=== PATIENT | female | born 1955 | race Caucasian/White ===

== ENCOUNTER 2017-04-21 08:51 | Emergency (ER) | payer OTHER ==
[2017-04-21] MEDS ORDERED: KETOROLAC 60 MG/2 ML INJ. (09:40)
[2017-04-21] MEDS: KETOROLAC 60 MG/2 ML INJ. IM (09:45)
== END 2017-04-21 09:47 | disposition home or self-care (01) ==
LOC: ER 08:51
DX: M54.30 Sciatica, unspecified side (principal); I11.0 Hypertensive heart disease with heart failure; I50.9 Heart failure, unspecified; G89.29 Other chronic pain
CPT/HCPCS: 96372; 99283-25; J1885

== ENCOUNTER → 2017-12-25 | Outpatient (CLI) | payer OTHER ==
[2017-04-21 09:00] VITALS: BP 141/88
[~2017-12-25] MED LIST: BUPR75TA6 PO; CARV6.252 PO; CETI10TA16 PO; CYCL10TA2 PO; DIPH25CA58 PO; HYDR12.58 PO; LACT1CAP29 PO; LISI2.5T PO; MELO7.5T29 PO; METH10TA4 PO; METO10TA81 PO; METO2.5T PO; NAPR-683 PO; TRAM50TA PO
[2017-12-25 09:41] LABS: BASO % 0 % (0-3); EOS # 0.1 x10^3/uL (0.0-0.7); EOS % 3 % (0-3); HEMATOCRIT 35.8 % (36.0-47.0); HEMOGLOBIN 12.3 g/dL (12.0-15.5); LYMPH # 1.3 x10^3/uL (1.0-4.8); LYMPH % 31 % (24-48); MEAN CORPUSCULAR HEMOGLOBIN 31 pg (25-35); MEAN CORPUSCULAR HGB CONC 34 g/dL (31-37); MEAN CORPUSCULAR VOLUME 90 fL (79-100); MONO # 0.5 x10^3/uL (0.0-1.1); MONO % 13 % (0-9); NEUT # 2.3 x10^3uL (1.8-7.7); NEUT % 53 % (31-73); PLATELET COUNT 160 x10^3/uL (140-400); RED CELL DISTRIBUTION WIDTH 13.6 % (11.5-14.5); WHITE BLOOD COUNT 4.3 x10^3/uL (4.0-11.0)
[2017-12-25 09:54] LABS: ALBUMIN 3.7 g/dL (3.4-5.0); CALCIUM 9.9 mg/dL (8.5-10.1); CREATININE 0.9 mg/dL (0.6-1.0); POTASSIUM 4.1 mmol/L (3.5-5.1)
[2017-12-25 10:01] LABS: PROTHROMBIN TIME PATIENT 13.8 SEC (11.7-14.0)
--- NOTE | 2017-12-25 12:57 | EKG ---
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
--- NOTE | 2017-12-25 16:30 | RAD ---
Chest, 2 views, 12/25/2017: HISTORY: Preop evaluation for knee surgery The heart size and pulmonary vascularity are normal. There is calcific plaquing of the aorta. No pulmonary infiltrate is seen. There is no evidence of pleural fluid. IMPRESSION: No acute cardiopulmonary abnormality is detected. Electronically signed by: Rajesh Arriola MD (12/25/2017 4:27 PM) [facility]
== END | disposition home or self-care (01) ==
LOC: SURGPAT 13:27
PROVIDERS: ATTEND Orthopaedic Surgery
DX: Z01.818 Encounter for other preprocedural examination (principal); I11.0 Hypertensive heart disease with heart failure; I50.9 Heart failure, unspecified; Z90.710 Acquired absence of both cervix and uterus
CPT/HCPCS: 36415; 71046; 80048; 82040; 82306; 85025; 85610; 85730; 87641; 93005

== ENCOUNTER → 2018-01-03 | Outpatient (CLI) | payer OTHER ==
[2017-04-21 09:00] VITALS: BP 141/88
[2018-01-03 15:02] LABS: BILIRUBIN,URINE NEGATIVE (NEG); CLARITY,URINE CLEAR; COLOR,URINE YELLOW; NITRITE,URINE NEGATIVE (NEG); PH,URINE 5.5; PROTEIN,URINE NEGATIVE (NEG-TRACE)
[2018-01-03 15:19] LABS: BACTERIA,URINE MANY /HPF (0-FEW); RBC,URINE OCC /HPF (0-2); SQUAMOUS EPITHELIAL CELL,UR MOD /LPF; WBC,URINE 20-40 /HPF (0-4)
== END | disposition home or self-care (01) ==
LOC: LAB 14:32
PROVIDERS: ATTEND Orthopaedic Surgery
DX: Z01.818 Encounter for other preprocedural examination (principal); M17.11 Unilateral primary osteoarthritis, right knee; I11.0 Hypertensive heart disease with heart failure; I50.9 Heart failure, unspecified; Z90.710 Acquired absence of both cervix and uterus; Z88.0 Allergy status to penicillin
CPT/HCPCS: 36415; 81001; 85651

== ENCOUNTER 2018-01-16 06:31 | Inpatient (IN) | payer OTHER ==
--- NOTE | 2018-01-15 15:57 | PDOC1 ---
History and Physical Date of Admission Date of Admission DATE: 01/16/18 Identification/Chief Complaint Chief Complaint right knee osteoarthritis pain Source Source: Chart review History of Present Illness History of Present Illness Patient is a 62 year old female with bilateral knee pain. The right knee is significantly worse than the left knee. She states she has pain that radiates through the entire right lower extremity. She received cortisone injections at her last visit on 08.07.2017, which did not provide much symptomatic relief. She takes Meloxicam, which helped with the knee swelling. She states the knee pain is daily. She would like to discuss a right total knee arthroplasty. She has already discussed surgery with her urinalysis technician Dr. Luna about a month ago. She swims for exercise as it is the only thing that does not cause severe knee pain like walking or biking does. She arrived ambulating without assistive devices. Past Medical History Cardiovascular: HTN Hepatobiliary: Other (hepatitis ) Past Surgical History Past Surgical History: Other (knee arthroscopy ) Family History Family History: Cancer (cervical ), Hypertension Social History Smoke: No ALCOHOL: occassional (1-2 times/week) Drugs: None Current Medications Current Medications Current Medications Morphine Sulfate 5 mg/Ketorolac Tromethamine 30 mg/Ropivacaine 60 ml/ Epinephrine HCl 0.5 mg/Sodium Chloride 100 ml @ 100 mls/hr 1X ONCE INT ART ; Start 01/16/18 at 06:00; Stop 01/16/18 at 06:59 Ondansetron HCl (Zofran) 4 mg PRN Q6HRS PRN IV NAUSEA/VOMITING; Start 01/16/18 at 07:00; Stop 01/16/18 at 19:00 Fentanyl Citrate (Fentanyl 2ml Vial) 25 mcg PRN Q5MIN PRN IV MILD PAIN; Start 01/16/18 at 07:00; Stop 01/16/18 at 19:00 Fentanyl Citrate (Fentanyl 2ml Vial) 50 mcg PRN Q5MIN PRN IV MODERATE TO SEVERE PAIN; Start 01/16/18 at 07:00; Stop 01/16/18 at 19:00 Ringer's Solution 1,000 ml @ 30 mls/hr Q24H IV ; Start 01/16/18 at 07:00; Stop 01/16/18 at 18:59 Lidocaine HCl (Xylocaine-Mpf 1% 2ml Vial) 2 ml PRN 1X PRN ID IV START; Start 01/16/18 at 07:00; Stop 01/16/18 at 19:00 Prochlorperazine Edisylate (Compazine) 5 mg PACU PRN PRN IV NAUSEA, MRX1; Start 01/16/18 at 07:00; Stop 01/16/18 at 19:00 Active Scripts Active Reported Benadryl (Diphenhydramine Hcl) 25 Mg Capsule 25 Mg PO HS Probiotic (Lactobacillus Combo No.10) 1 Each Capsule 1 Each PO HS Cetirizine Hcl 10 Mg Tablet 10 Mg PO DAILY Ritalin (Methylphenidate Hcl) 10 Mg Tablet 10 Mg PO BID Metolazone 2.5 Mg Tablet 2.5 Mg PO DAILY Hydrochlorothiazide Tablet (Hydrochlorothiazide) 12.5 Mg Tablet 12.5 Mg PO DAILY Meloxicam 7.5 Mg Tablet 15 Mg PO DAILY Lisinopril 2.5 Mg Tablet 20 Mg PO DAILY Carvedilol 6.25 Mg Tablet 6.25 Mg PO BID Allergies Allergies: Coded Allergies: Penicillins (Unverified Allergy, Intermediate, 03/18/14) Sulfa (Sulfonamide Antibiotics) (Unverified Allergy, Intermediate, 03/18/14 ) codeine (Unverified Allergy, Mild, TOLERATED MORPHINE IN 2013, 01/15/18) Physical Exam General: Alert, Oriented X3, Cooperative, No acute distress HEENT: Atraumatic, EOMI Lungs: Normal air movement Heart: RRR Abdomen: Soft Extremities: No clubbing, No cyanosis, Normal pulses, Other (Upon inspection of bilateral knees, there are no masses or detectable effusion. Varus alignment , bilaterally. The right knee shows active motion from 5-115 degrees and the left knee shows slightly better motion at 0-120 degrees, with crepitus felt throughout motion and pain at the extremes of motion. There is tenderness to palpation along the medial and lateral joint lines, bilaterally. The right knee is more tender than the left. The knees are stable to varus and valgus stress, without subluxation or laxity. Quadriceps and hamstring show normal strength of 5/5, with normal muscle tone. ) Skin: No rashes, No breakdown, No significant lesion Neuro: Normal speech, Sensation intact Psych/Mental Status: Mental status NL, Mood NL Vitals Vitals IMAGING REPORT Joint survey, hips knees and ankles Clinical information: Preoperative for total knee arthroplasty Comparison: None. Findings Bones: The angle between the right hip-ankle mechanical axis and the femoral shaft is 5 degrees. The angle between the left hip-ankle mechanical axis and the femoral shaft is 5 degrees. From hip to ankle, the right lower extremity is in 1 degree of varus alignment. From hip to ankle, the left lower extremity is in 4 degree varus alignment. Joints: The right knee joint has tibiofemoral narrowing consistent with osteoarthritis. There is narrowing of the left knee joint medially. The hips and ankles show minimal degenerative changes. Soft tissue: Normal. Impression: Trace varus alignment of the right knee. 4 degrees of varus alignment of the left knee. The difference between the mechanical axis and femoral shaft anatomic axis is 5 degrees bilaterally. Dictated and Signed Using Voice Recognition Software Carrillo Wilkinson MD VTE Prophylaxis Ordered VTE Prophylaxis Devices: Yes VTE Pharmacological Prophylaxi: Yes Assessment/Plan Assessment/Plan Right knee osteoarthritis pain. The patient is a 62 year old female with right knee osteoarthritis (and less symptomatic left knee osteoarthritis.) She would like to proceed with right total knee replacement. We will send her to the [facility] preoperatively, and she will schedule at her convenience. We discussed the risks and benefits of knee replacement including bleeding, infection, post- operative stiffness, instability, silas-prosthetic fracture, DVT and PE. I explained there is some risk that some of her pain is related to low back issues and/or sciatica, however she had good relief of knee pain with cortisone injection into the knee joint and has [id number] contact of the knee, and I expect significant relief of her lower extremity symptoms with knee replacement. All of her questions were answered. Follow up with me 10-14 days after surgery. SOL MARMOLEJO Jan 15, 2018 15:57
[2018-01-16] VITALS (8 sets, daily range): BP systolic 83–129; BP diastolic 56–85
[~2018-01-16] VITALS: Ht 162.6 cm; Wt 71.2 kg
[~2018-01-16 06:31] MED LIST changes: +CLINDAMYCIN 900MG PREMIX 50 ML IV PRN; +HYDROcodone/APAP 7.5/325MG 1 TAB TABLET PO PRN; +MELOXICAM 7.5 MG TABLET PO PRN; +TOBRAMYCIN POWDER 1.2 GM VIAL. ONE; +TRANEXAMIC ACID 1,000 MG in IV NS 50ML -- 1ST BAG INJ ONE; +VANCOMYCIN 1 GM VIAL. ONE
[2018-01-16] MEDS ORDERED: ONDANSETRON PF 4 MG/2 ML VIAL. IV PRN (07:00)
[2018-01-16] MEDS ORDERED: fentaNYL PF VIAL 100 MCG/2 ML VIAL IV PRN ×3 (07:00→11:15)
[2018-01-16] MEDS ORDERED: PROCHLORPERAZINE 10 MG/2 ML VIAL. IV PRN ×2 (07:00→11:15)
[2018-01-16] MEDS ORDERED: IV RINGERS,LACTATED 1000ML 1,000 ML IV SCH (07:00)
[2018-01-16] MEDS ORDERED: LIDOCAINE 1% PF 2 ML VIAL. ID PRN (07:00)
[2018-01-16 07:53] LABS: BILIRUBIN,URINE NEGATIVE (NEG); CLARITY,URINE CLEAR; COLOR,URINE YELLOW; NITRITE,URINE NEGATIVE (NEG); PH,URINE 6.5; PROTEIN,URINE NEGATIVE (NEG-TRACE); UROBILINOGEN,URINE 0.2 mg/dL (0.2 mg/dL)
[2018-01-16] MEDS ORDERED: TRANEXAMIC ACID 1,000 MG in IV NS 50ML -- 2ND BAG INJ ONE (08:00)
[2018-01-16 08:06] LABS: SQUAMOUS EPITHELIAL CELL,UR FEW /LPF
[2018-01-16 08:07] LABS: BACTERIA,URINE MODERATE /HPF (0-FEW); RBC,URINE OCC /HPF (0-2)
[2018-01-16] MEDS ORDERED: FAMOTIDINE 20 MG/2 ML VIAL ONE (08:21)
[2018-01-16] MEDS ORDERED: PROPOFOL 0 ML IV ONE (08:21)
[2018-01-16] MEDS ORDERED: DEXAMETHASONE SOD PHOS 20 MG/5 ML VIAL. ONE (08:21)
[2018-01-16] MEDS ORDERED: ONDANSETRON PF 4 MG/2 ML VIAL. ONE ×2 (08:21→08:24)
[2018-01-16] MEDS ORDERED: PROPOFOL 20 ML IV ONE (08:24)
[2018-01-16] MEDS ORDERED: NEOSTIGMINE 10 MG/10 ML VIAL. ONE (08:24)
[2018-01-16] MEDS ORDERED: NEOSTIGMINE METHYLSULFATE 5 MG/5 ML SYRINGE. ONE (08:25)
[2018-01-16] MEDS ORDERED: GLYCOPYRROLATE 1 MG/5 ML VIAL. ONE (08:25)
[2018-01-16] MEDS ORDERED: fentaNYL PF VIAL 100 MCG/2 ML VIAL ONE ×3 (08:25→12:44)
[2018-01-16] MEDS ORDERED: MIDAZOLAM HCL/PF 2 MG/2 ML VIAL. ONE (08:25)
[2018-01-16] MEDS ORDERED: ROCURONIUM 50 MG/5 ML VIAL. ONE (08:25)
[2018-01-16] MEDS ORDERED: SEVOFLURANE > 120 MINUTES. IH ONE (08:26)
[2018-01-16] MEDS: MORPHINE SULFATE 5 MG, KETOROLAC 30MG VIAL 30 MG, ROPIVacaine 0.5% PF 60 ML, EPINEPHrin... INT ART ONE ×10 (09:13→09:54)
--- NOTE | 2018-01-16 11:03 | PDOC4 ---
Operative Note Operative Note Date of Procedure: January 16, 2018 Pre-Op Diagnosis: Osteoarthritis right knee Post-Op Diagnosis: Osteoarthritis right knee Procedure: right total knee arthroplasty Surgeon: Supa Wilkinson MD Washing Machine Striper: Deysi Neumann PA-C Anesthesia: General EBL: 150 mL Specimens Obtained: right knee bone and soft tissue Complications: none Implant Company: [employer] Drains: hemovac plus pain catheter Tourniquet time: 48 Minutes Tourniquet Pressure: 350 mm Hg Indications for Procedure: Arthritis pain unrelieved by nonoperative management Findings: Severe osteoarthritis with bone on bone contact including eburnated bone at the patellofemoral joint both on the femur and the patella, and high grade cartilage loss with osteophytes medially and laterally. Also a flexion contracture. Additional 2 mm distal femoral resection due to the flexion contracture. Lateral patella retinacular release required for patella tracking. Implants used: Size 4 right bicruciate stabilized Journey II BCS Oxinium femoral component, size 3 right Journey nonporous tibial baseplate, size 3-4 10 mm right Journey II BCS XLPE articular insert, 35 mm oval Aysha II resurfacing patellar component Procedure in Detail: The patient was identified in the preoperative holding area, and the correct right lower extremity was marked by me. The patient was taken to the operating room where the patient was anesthetized by the Department of Anesthesia. Preoperative antibiotics were given intravenously. Tranexamic acid 1 g was given intravenously for intraoperative hemostasis. A "time-out" procedure was performed. The patient was positioned supine on the operative table with a tourniquet on the upper right thigh. The right lower limb was thoroughly prepped and draped in sterile fashion. An impervious stockinet and adhesive drape were used such that the skin was entirely covered. An Nelson leg garcia was used. The operating team wore personal exhaust-ventilated hoods. The limb was elevated to exsanguinate it, and the tourniquet was inflated. A midline skin incision was made with a scalpel using the patella and tibial tubercle as landmarks. Electrocautery was used for hemostasis. My law office assistant used rake retractors. A medial parapatellar arthrotomy incision was used with extension into the distal quadriceps tendon. The patella was retracted laterally and Hohmann retractors were now used by my law office assistant. Excess synovium, the menisci, and the cruciate ligaments were resected sharply. The patella was assessed and excess synovium and osteophytes around the patellar articulation were removed. The patella was measured with a caliper, cut freehand with a saw using caliper measurements, sized, and then drilled for an oval three-pegged patella component. Periarticular anesthetic injection was used in the suprapatellar pouch and distal quadriceps muscle. Whitesides's line and the transepicondylar axis were marked on the femur. An intra-medullary 5 degree cutting guide was pinned to the femur, and a distal femoral cut was made with an oscillating saw. An additional 2 mm resection was used due to the depth of the trochlea, and due to the flexion contracture. My law office assistant held Hohmann retractors and an [facility] retractor to protect the medial and lateral collateral ligaments, the patellar tendon, the skin and the other soft tissues. A posterior referencing guide was applied with external rotation of 5 to match Whitesides line. A 5-in-1 Journey II cutting guide was then applied and pinned to the femur. The posterior, anterior, and all chamfer cuts were made with the oscillating saw. An extramedullary guide was pinned to the tibia and rotational alignment and the planned resection thickness assessed. An external alignment stephen was used to verify the planned cut in the varus-valgus plane and regarding posterior slope referencing the tibial tubercle, the tibial shaft, the ankle joint, and the second metatarsal. The upper tibia was cut made with an oscillating saw. My law office assistant held Hohmann retractors and a posterior cruciate ligament retractor to protect the medial and lateral collateral ligaments, the patellar tendon, the skin, the peroneal nerve and the other soft tissues. The upper tibia was sized with a trial baseplate. The posterior compartment was cleared of osteophytes and loose bodies. Periarticular anesthetic injection was used in the posterior compartment. The box cut for a posterior stabilized component was made. A preliminary reduction was performed with a trial femur, trial tibial baseplate and trial polyethylene. Soft-tissue balancing was now performed, and extension and rotation of the alignments was checked using a guide stephen in the tibial trial and a guide pin in the femur. No additional releases were required. The stability was assessed using different thicknesses of tibial articular surface to find satisfactory stability and good range of motion. The rotation of the tibial component was marked on the upper tibia. Final trial reduction was now performed verifying patella tracking and tibiofemoral stability and alignment. A lateral patellar retinacular release was required. The tibia preparation was completed with a drill, saw, and fin punch at the previously noted rotation. The final implants were verified and opened. Outer gloves were changed by the operating team. The bone cuts were washed thoroughly with the Apartment Adda InterPulse device and dried. I asked Ms. Neumann to leave the room while the cement was mixed. Two packages of Kapoor + Nephew Rally HV bone cement were mixed in powdered form with Vancomycin 1gm and Tobramycin 1.2 gm, and then vacuum-mixed with the monomer, and placed into a cement gun. The cut surfaces of the bone were thoroughly dried with Winkler-tip suction and with laparotomy sponges for cement interdigitation. The final components were cemented into place. The knee was kept at full extension while the cement hardened, and excess cement was removed. Tranexamic acid 1 g was redosed intravenously for additional intraoperative hemostasis. The tourniquet was released, and electrocautery was used for hemostasis. A final periarticular anesthetic injection was used for pain relief. Ms. Neumann returned, and re-scrubbed, gowned and gloved before returning to the case. A final check of [id number] and stability was made, and the polyethylene implant final size was chosen. The polyethylene implant was secured to the tibial baseplate, and the knee was reduced a final time and range of motion and stability was confirmed. Thorough irrigation was used. Hemovac and pain catheter were used.The arthrotomy was closed with interrupted [id number] # 1 PDS suture. The arthrotomy incision was then run with #1 STRATAFIX Symmetric PDS Plus Knotless suture. The subcutaneous tissues were closed with #2-0 Vicryl by my law office assistant. The skin was approximated with michele by my law office assistant. The skin incision was then covered and reinforced with NIMCO single use negative pressure wound therapy dressing Needle and sponge counts were correct. There were no apparent complications. The patient returned to the recovery room in stable condition. SUPA WILKINSON MD Jan 16, 2018 11:03
[2018-01-16] MEDS: IV DEXTROSE 5 %-0.45 % NACL 1,000 ML IV SCH ×2 (11:11→21:11)
[2018-01-16] MEDS ORDERED: MORPHINE SULFATE 10 MG/ML VIAL. IV PRN (11:15)
[2018-01-16] MEDS ORDERED: diphenhydrAMINE HCL 25 MG CAPSULE PO PRN (11:15)
[2018-01-16] MEDS ORDERED: HYDROcodone/APAP 10/325 1 TAB TABLET PO PRN (11:15)
[2018-01-16] MEDS ORDERED: PROCHLORPERAZINE 5 MG TABLET. PO PRN (11:15)
[2018-01-16] MEDS ORDERED: ZOLPIDEM 5 MG TABLET. PO PRN (11:15)
[2018-01-16] MEDS ORDERED: HYDROcodone/APAP 7.5/325MG 1 TAB TABLET PO PRN (11:15)
[2018-01-16] MEDS ORDERED: traMADol 50 MG TABLET PO PRN ×2 (11:15)
[2018-01-16] MEDS ORDERED: METOCLOPRAMIDE HCL 10 MG/2 ML VIAL. IV PRN (11:15)
[2018-01-16] MEDS ORDERED: 0.9 % SODIUM CHLORIDE 10 ML DISP.SYRIN. IV PRN (11:15)
[2018-01-16] MEDS ORDERED: MORPHINE SULFATE 4 MG/ML VIAL. IV PRN ×2 (11:15)
[2018-01-16] MEDS ORDERED: DEXTROSE 50% 25 GM / 50ML DISP.SYRIN. IV PRN (11:15)
[2018-01-16] MEDS ORDERED: ACETAMINOPHEN 325 MG TABLET. PO PRN (11:15)
[2018-01-16] MEDS: fentaNYL PF VIAL 100 MCG/2 ML VIAL IV PRN ×4 (11:28→13:10)
--- NOTE | 2018-01-16 12:20 | RAD ---
Examination: KNEE RIGHT 2V History: POST OP Comparison/Correlation: None Findings: Frontal and lateral views of the right knee were obtained. Skin michele are present along the midline anteriorly at the level of the knee. Total right knee joint arthroplasty is present. A drain is in place within the lateral aspect of the knee joint capsule. Soft tissue gas and gas within the joint capsule are noted. This is consistent with postoperative status. No fracture. No findings to suggest loosening. Lucency distal to the cement about the tibial component is present. Correlate with surgical report. Impression: Postoperative right knee. No suspicious finding. Electronically signed by: Trevon Hayes MD (01/16/2018 12:16 PM) [id number]
[2018-01-16] MEDS: metOLazone 2.5 MG TABLET PO SCH (13:00)
[2018-01-16] MEDS: SENNOSIDES/DOCUSATE 8.6/50MG TABLET. PO SCH (13:00)
[2018-01-16] MEDS: CETIRIZINE HCL 10 MG TABLET. PO SCH (13:00)
[2018-01-16] MEDS: MULTIVITAMIN with MINERAL TABLET. PO SCH (13:00)
[2018-01-16] MEDS: hydroCHLOROthiazide 12.5 MG CAPSULE PO SCH (13:00)
[2018-01-16] MEDS: LISINOPRIL 20 MG TABLET PO SCH (13:00)
[2018-01-16] MEDS: CLINDAMYCIN 900MG PREMIX 50 ML IV SCH ×2 (14:26→20:46)
[2018-01-16] MEDS: FERROUS SULFATE 325 MG TABLET. PO SCH (17:00)
[2018-01-16] MEDS: CARVEDILOL 6.25 MG TABLET. PO SCH (17:00)
[2018-01-16] MEDS: KETOROLAC 30MG VIAL 30 MG, BUPIVACAINE MPF 0.25% 20 ML, EPINEPHrine 0.5 MG in TOTAL VOL... INT ART SCH (18:29)
[2018-01-16] MEDS: ASPIRIN ENTERIC COATED 325 MG TABLET.DR. PO SCH (20:46)
[2018-01-16] MEDS: LACTOBACILLUS RHAMNOSUS GG 1 CAPSULE. PO SCH (20:46)
[2018-01-16] MEDS: oxyCODONE/APAP 5/325 1 TAB TABLET PO PRN (21:39)
[2018-01-17] MEDS: IV DEXTROSE 5 %-0.45 % NACL 1,000 ML IV SCH ×2 (02:02→17:11)
[2018-01-17] MEDS: CLINDAMYCIN 900MG PREMIX 50 ML IV SCH (02:55)
[2018-01-17 03:00] VITALS: BP 94/59
[2018-01-17] MEDS: KETOROLAC 30MG VIAL 30 MG, BUPIVACAINE MPF 0.25% 20 ML, EPINEPHrine 0.5 MG in TOTAL VOL... INT ART SCH (05:42)
[2018-01-17 05:46] LABS: HEMATOCRIT 25.3 % (36.0-47.0); HEMOGLOBIN 8.7 g/dL (12.0-15.5)
[2018-01-17] MEDS ORDERED: MAGNESIUM HYDROXIDE 2,400 MG/30 ML ORAL.SUSP. PO PRN (06:00)
[2018-01-17 06:15] VITALS: BP 91/56
[2018-01-17] MEDS: METHYLPHENIDATE HCL 5 MG TABLET PO SCH ×2 (07:16→11:32)
[2018-01-17 07:58] VITALS: BP 93/61
[2018-01-17] MEDS: CARVEDILOL 6.25 MG TABLET. PO SCH ×2 (08:00→16:51)
[2018-01-17] MEDS: LISINOPRIL 20 MG TABLET PO SCH (08:01)
[2018-01-17] MEDS: oxyCODONE/APAP 5/325 1 TAB TABLET PO PRN ×2 (08:03→12:33)
[2018-01-17] MEDS: MELOXICAM 7.5 MG TABLET PO SCH (08:04)
[2018-01-17] MEDS: hydroCHLOROthiazide 12.5 MG CAPSULE PO SCH (08:04)
[2018-01-17] MEDS: CETIRIZINE HCL 10 MG TABLET. PO SCH (08:04)
[2018-01-17] MEDS: metOLazone 2.5 MG TABLET PO SCH (08:04)
[2018-01-17] MEDS: MULTIVITAMIN with MINERAL TABLET. PO SCH (08:04)
[2018-01-17] MEDS: ASPIRIN ENTERIC COATED 325 MG TABLET.DR. PO SCH ×2 (08:04→20:04)
[2018-01-17] MEDS: FERROUS SULFATE 325 MG TABLET. PO SCH ×2 (08:04→16:50)
[2018-01-17] MEDS: SENNOSIDES/DOCUSATE 8.6/50MG TABLET. PO SCH (08:04)
--- NOTE | 2018-01-17 09:40 | PDOC ---
PROGRESS NOTES Subjective Subjective Doing well this morning. Objective Vital Signs Vital Signs Date Time Temp Pulse Resp B/P (MAP) Pulse Ox O2 Delivery O2 Flow Rate FiO2 01/17/18 08:03 20 95 Room Air 01/17/18 08:01 85 93/61 01/17/18 07:58 94.0 01/17/18 06:15 98.0 98.0 Physical Exam Postop dressing c/d/i. NIMCO intact. Hemovac and pain catheter in place. Thigh and calf soft and nontender with negative Santhosh's sign. Good dorsiflexion and plantarflexion at foot, with no evidence of neurovascular injury. Peripheral pulses and light touch sensation intact. Labs Laboratory Tests Test 01/16/18 06:50 01/17/18 05:24 Urine Collection Type Unknown Urine Color Yellow Urine Clarity Clear Urine pH 6.5 Urine Specific [place] 1.025 Urine Protein Negative mg/dL (NEG-TRACE) Urine Glucose (UA) Negative mg/dL (NEG) Urine Ketones (Stick) Negative mg/dL (NEG) Urine Blood Negative (NEG) Urine Nitrite Negative (NEG) Urine Bilirubin Negative (NEG) Urine Urobilinogen Dipstick 0.2 mg/dL (0.2 mg/dL) Urine Leukocyte Esterase Large (NEG) Urine RBC Occ /HPF (0-2) Urine WBC 11-20 /HPF (0-4) Urine Squamous Epithelial Cells Few /LPF Urine Bacteria Moderate /HPF (0-FEW) Hemoglobin 8.7 g/dL (12.0-15.5) Hematocrit 25.3 % (36.0-47.0) Mean Corpuscular Hemoglobin Concent 35 g/dL (31-37) Laboratory Tests Test 01/17/18 05:24 Hemoglobin 8.7 g/dL (12.0-15.5) Hematocrit 25.3 % (36.0-47.0) Mean Corpuscular Hemoglobin Concent 35 g/dL (31-37) Imaging Postop x-rays reviewed and show satisfactory TKA with no apparent complications. Assessment Assessment POD #1 TKA Plan Plan of Care Continue POC including DVT ppx and therapy. UA shows moderate bacteria. Will treat with ceftriaxone 1g IV q24hrs (recc by pharmacist) as pt cannot take fluoroquinolones due to tendon pain and has PCN allergy. SOL MARMOLEJO Jan 17, 2018 09:39
[2018-01-17] MEDS ORDERED: CIPROFLOXACIN HCL 250 MG TABLET. PO SCH (10:00)
[2018-01-17] MEDS: CALCIUM CARBONATE 500 MG TAB.CHEW PO PRN ×2 (11:32→16:52)
[2018-01-17] MEDS: cefTRIAXone IV Push 1 GM VIAL. IVP SCH (11:33)
[2018-01-17 11:56] VITALS: BP 129/77
[2018-01-17] MEDS ORDERED: BISACODYL 10 MG SUPP.RECT. PR PRN (16:00)
[2018-01-17] MEDS: oxyCODONE/APAP 7.5/325 1 TAB TABLET PO PRN ×2 (16:52→20:04)
[2018-01-17 18:08] VITALS: BP 110/76
[2018-01-17] MEDS: LACTOBACILLUS RHAMNOSUS GG 1 CAPSULE. PO SCH (20:04)
[2018-01-17] MEDS: MORPHINE SULFATE 2 MG/ML VIAL. IV PRN (22:08)
[2018-01-17 23:19] VITALS: BP 116/73
[2018-01-18] MEDS: MORPHINE SULFATE 2 MG/ML VIAL. IV PRN ×2 (01:27→02:34)
[2018-01-18] MEDS: oxyCODONE/APAP 7.5/325 1 TAB TABLET PO PRN ×3 (01:29→07:24)
[2018-01-18] MEDS: IV DEXTROSE 5 %-0.45 % NACL 1,000 ML IV SCH ×3 (03:11→22:21)
[2018-01-18 05:03] LABS: HEMATOCRIT 27.2 % (36.0-47.0); HEMOGLOBIN 9.6 g/dL (12.0-15.5)
[2018-01-18 07:20] VITALS: BP 133/76
[2018-01-18] MEDS: METHYLPHENIDATE HCL 5 MG TABLET PO SCH ×2 (07:24→12:32)
[2018-01-18] MEDS: MULTIVITAMIN with MINERAL TABLET. PO SCH (08:14)
[2018-01-18] MEDS: MELOXICAM 7.5 MG TABLET PO SCH (08:14)
[2018-01-18] MEDS: FERROUS SULFATE 325 MG TABLET. PO SCH ×2 (08:14→16:35)
[2018-01-18] MEDS: metOLazone 2.5 MG TABLET PO SCH (08:15)
[2018-01-18] MEDS: ASPIRIN ENTERIC COATED 325 MG TABLET.DR. PO SCH ×2 (08:15→21:08)
[2018-01-18] MEDS: SENNOSIDES/DOCUSATE 8.6/50MG TABLET. PO SCH (08:15)
[2018-01-18] MEDS: CETIRIZINE HCL 10 MG TABLET. PO SCH (08:17)
[2018-01-18] MEDS: CARVEDILOL 6.25 MG TABLET. PO SCH ×2 (08:18→16:41)
[2018-01-18] MEDS: cefTRIAXone IV Push 1 GM VIAL. IVP SCH (12:33)
[2018-01-18 12:35] VITALS: BP 117/80
[2018-01-18] MEDS: oxyCODONE/APAP 5/325 1 TAB TABLET PO PRN ×2 (12:36→16:35)
[2018-01-18] MEDS: LISINOPRIL 20 MG TABLET PO SCH (12:45)
[2018-01-18] MEDS: hydroCHLOROthiazide 12.5 MG CAPSULE PO SCH (12:46)
--- NOTE | 2018-01-18 12:51 | PDOC ---
PROGRESS NOTES Subjective Subjective Pain controlled Objective Vital Signs Vital Signs Date Time Temp Pulse Resp B/P (MAP) Pulse Ox O2 Delivery O2 Flow Rate FiO2 01/18/18 12:45 94 117/80 01/18/18 12:36 Room Air 01/18/18 07:40 96.0 01/18/18 07:20 98.4 18 96 98.4 Physical Exam Knee NIMCO dressing with spotty drainage only, and slight bleeding from hemovac site. Calf and thigh soft and NT. Good AROM toes, foot and ankle with negative Homans and no sign of neurovascular injury nor compartment syndrome. Pain catheter and hemovac have been removed. Not yet safely walking with walker Labs Laboratory Tests Test 01/17/18 05:24 01/18/18 04:05 Hemoglobin 8.7 g/dL (12.0-15.5) 9.6 g/dL (12.0-15.5) Hematocrit 25.3 % (36.0-47.0) 27.2 % (36.0-47.0) Mean Corpuscular Hemoglobin Concent 35 g/dL (31-37) 35 g/dL (31-37) Laboratory Tests Test 01/18/18 04:05 Hemoglobin 9.6 g/dL (12.0-15.5) Hematocrit 27.2 % (36.0-47.0) Mean Corpuscular Hemoglobin Concent 35 g/dL (31-37) Imaging Postoperative knee x-rays report reviewed, images independently reviewed. Satisfactory TKA alignment with no apparent complications. Assessment Assessment POD 2 after TKA Plan Plan of Care Continue PT and DVT prophylaxis. Discharge planning for tomorrow SUPA GARCIA MD Jan 18, 2018 12:51
[2018-01-18 18:17] VITALS: BP 87/57
[2018-01-18] MEDS: LACTOBACILLUS RHAMNOSUS GG 1 CAPSULE. PO SCH (21:08)
[2018-01-19] MEDS: oxyCODONE/APAP 7.5/325 1 TAB TABLET PO PRN ×2 (00:14→03:32)
[2018-01-19 05:28] LABS: HEMATOCRIT 25.2 % (36.0-47.0); HEMOGLOBIN 8.7 g/dL (12.0-15.5)
[2018-01-19 05:57] VITALS: BP 110/65
[2018-01-19 08:10] VITALS: BP 95/59
[2018-01-19] MEDS: CETIRIZINE HCL 10 MG TABLET. PO SCH (08:13)
[2018-01-19] MEDS: SENNOSIDES/DOCUSATE 8.6/50MG TABLET. PO SCH (08:13)
[2018-01-19] MEDS: MULTIVITAMIN with MINERAL TABLET. PO SCH (08:14)
[2018-01-19] MEDS: FERROUS SULFATE 325 MG TABLET. PO SCH (08:14)
[2018-01-19] MEDS: MELOXICAM 7.5 MG TABLET PO SCH (08:14)
[2018-01-19] MEDS: metOLazone 2.5 MG TABLET PO SCH (08:14)
[2018-01-19] MEDS: ASPIRIN ENTERIC COATED 325 MG TABLET.DR. PO SCH (08:14)
[2018-01-19] MEDS: METHYLPHENIDATE HCL 5 MG TABLET PO SCH ×2 (08:17→12:40)
[2018-01-19] MEDS: IV DEXTROSE 5 %-0.45 % NACL 1,000 ML IV SCH (09:11)
--- NOTE | 2018-01-19 09:11 | PATHOLOGY ---
[facility] Accession Number: [id number] . 01 Material submitted: . BONE RIGHT KNEE . 01 Clinician provided ICD-10: M17.11 . 01 Clinical history: . Right knee osteoarthritis . 02 Diagnosis: Segments of bone and soft tissue, right total knee replacement: - Focally advanced degenerative arthritis. - Papillary marked chronic synovitis. See comment. (JPM:maddy; 01/18/2018) QMS/01/19/2018 . 02 Comment: Sections of the synovial tissue show papillary marked chronic inflammation. The inflammatory infiltrate contains numerous plasma cells which raises the possibility of co-existent rheumatoid arthritis. (JPM:maddy; 01/18/2018) . 02 Electronically signed: . Hesham Centeno MD, Pathologist NPI- [id number] . 01 Gross description: . The specimen is received in formalin, labeled "Kathryn Wolff, bone right knee", are multiple segments of myers-yellow bone consisting of tibia plateau, patella, meniscus and irregular morocho-white soft tissue and myers brown to yellow papillary tissue measuring 12.5 x 8.0 x 2.0 cm in aggregate. Osteophyte and eburnation are identified. Language Pathologist tissue is submitted in A1-A2 (A1 = bone after decalcification and A2 = soft tissue). (SWS; 01/16/2018) SHS/SHS . 02 Pathologist provided ICD-10: M17.11, M65.861 . 02 CPT . 418439, [id number] Specimen Comment: A courtesy copy of this report has been sent to Specimen Comment: [phone], . Specimen Comment: Report sent to / DR MAJANO Performed at: [address] [place], [place] [address] [facility] [address], [place], [place] [id number] MD Gwyn Pearson MD Phone: [phone] Performed at: [address] [id number] MD Hesham Centeno MD Phone: [phone]
[2018-01-19] MEDS: cefTRIAXone IV Push 1 GM VIAL. IVP SCH (10:00)
[2018-01-19] MEDS: oxyCODONE/APAP 5/325 1 TAB TABLET PO PRN (12:41)
[2018-01-19] MEDS: CARVEDILOL 6.25 MG TABLET. PO SCH (12:44)
[2018-01-19] MEDS: LISINOPRIL 20 MG TABLET PO SCH (12:45)
[2018-01-19] MEDS: hydroCHLOROthiazide 12.5 MG CAPSULE PO SCH (12:45)
[2018-01-19] MEDS ORDERED: ONDANSETRON ODT 4 MG TAB.RAPDIS. PO ONE (13:15)
[2018-01-19 13:26] VITALS: BP 106/68
--- NOTE | 2018-01-19 13:39 | PDOC ---
PROGRESS NOTES Subjective Subjective Pain controlled. Nausea with pain medication, Zofran works well. Urine culture grew Enterococcus faecium. Objective Vital Signs Vital Signs Date Time Temp Pulse Resp B/P (MAP) Pulse Ox O2 Delivery O2 Flow Rate FiO2 01/19/18 13:26 110 20 106/68 (81) 95 Room Air 01/19/18 05:57 98.4 98.4 01/18/18 07:40 96.0 Physical Exam NIMCO dressing intact with spotty drainage only. Thigh and calf soft and NT with negative Santhosh's sign. Good dorsiflexion and plantarflexion at toes, foot, and ankle with no evidence of neurovascular injury. Peripheral pulses and light touch sensation intact. Labs Laboratory Tests Test 01/18/18 04:05 01/19/18 04:55 Hemoglobin 9.6 g/dL (12.0-15.5) 8.7 g/dL (12.0-15.5) Hematocrit 27.2 % (36.0-47.0) 25.2 % (36.0-47.0) Mean Corpuscular Hemoglobin Concent 35 g/dL (31-37) 35 g/dL (31-37) Laboratory Tests Test 01/19/18 04:55 Hemoglobin 8.7 g/dL (12.0-15.5) Hematocrit 25.2 % (36.0-47.0) Mean Corpuscular Hemoglobin Concent 35 g/dL (31-37) Assessment Assessment POD #3 TKA Plan Plan of Care Continue DVT ppx and therapy. Urine culture grew Enterococcus faecium. Pharmacist recommended Macrobid - Rx on chart. Prescription also written for Zofran prn nausea. Discharge to home with home health this afternoon. F/u in 10-14 days. SOL MARMOLEJO Jan 19, 2018 13:39
--- NOTE | 2018-01-19 13:41 | DISCH ---
DISCHARGE WITH HOME HEALTH DISCHARGE INFORMATION: Discharge Date: Jan 19, 2018 Final Diagnosis: s/p right TKA Condition on Discharge: Stable HOME HEALTH: Face to Face: I certify this patient is under my care and that I, or a nurse practitioner or physician's virtual customer assistant working with me, had a face to face encounter that meets the physician face to face encounter requirements with this patient on []. Physical Therapy For: Evalulation/Treatment Occupational Therapy For: Evaluation/Treatment Pt Meets Homebound Status: Unsteady balance w/ amb,, Limited distance walking POST DISCHARGE ORDERS: Activity Instructions for Disc: Activity as tolerated Weight Bearing Status after Di: Full weight bearing, As tolerated Bathing Instructions: Shower-keep dressing dry, No Tub Bath until see DIET AFTER DISCHARGE: Regular Wound/Incision Care: Ice to area for comfort, Keep wound elevated, Do not change dressing, No wound care needed CERTIFICATION STATEMENT: Certification Statement: Certification Statement: Based on the above finding, I certify that this patient is confined to the home and needs intermittent long-term care, physical therapy and/or speech therapy, or continues to need occupational therapy.~ This patient is under my care, and I have initiated the establishment of the plan of care.~ This patient will be followed by myself or a community physician who will periodically review the plan of care. Home Meds Reported Medications Diphenhydramine Hcl (BENADRYL) 25 Mg Capsule, 25 MG PO HS, CAP 12/26/17 Lactobacillus Combo No.10 (PROBIOTIC) 1 Each Capsule, 1 EACH PO HS, CAP 12/26/17 Cetirizine Hcl (CETIRIZINE HCL) 10 Mg Tablet, 10 MG PO DAILY, TAB 12/26/17 Methylphenidate Hcl (RITALIN) 10 Mg Tablet, 10 MG PO BID, TAB 12/26/17 Metolazone (METOLAZONE) 2.5 Mg Tablet, 2.5 MG PO DAILY, #30 TAB 0 Refills 12/26/17 Hydrochlorothiazide (HYDROCHLOROTHIAZIDE TABLET) 12.5 Mg Tablet, 12.5 MG PO DAILY for DIURETIC, TAB 0 Refills 12/26/17 Meloxicam (MELOXICAM) 7.5 Mg Tablet, 15 MG PO DAILY, TAB 12/25/17 Lisinopril (LISINOPRIL) 2.5 Mg Tablet, 20 MG PO DAILY for FOR HYPERTENSION, #30 TAB 0 Refills 09/18/13 Carvedilol (CARVEDILOL) 6.25 Mg Tablet, 6.25 MG PO BID, TAB 09/18/13 SOL MARMOLEJO Jan 19, 2018 13:41
--- NOTE | 2018-01-19 13:48 | PDOC3 ---
Discharge Summary Visit Information Date of Admission: Jan 16, 2018 Date of Discharge: Jan 19, 2018 Admitting Diagnosis: right knee osteoarthritis pain Brief Hospital Course Allergies Allergies Coded Allergies Type Severity Reaction Last Updated Verified Penicillins Allergy Intermediate 01/18/18 Yes Sulfa (Sulfonamide Antibiotics) Allergy Intermediate 01/18/18 Yes codeine Allergy Mild TOLERATED MORPHINE IN 201301/18/18 Yes Vital Signs Vital Signs Date Time Temp Pulse Resp B/P (MAP) Pulse Ox O2 Delivery O2 Flow Rate FiO2 01/19/18 13:26 110 20 106/68 (81) 95 Room Air 01/19/18 05:57 98.4 98.4 01/18/18 07:40 96.0 Lab Results Laboratory Tests Test 01/18/18 04:05 01/19/18 04:55 Hemoglobin 9.6 g/dL (12.0-15.5) 8.7 g/dL (12.0-15.5) Hematocrit 27.2 % (36.0-47.0) 25.2 % (36.0-47.0) Mean Corpuscular Hemoglobin Concent 35 g/dL (31-37) 35 g/dL (31-37) Laboratory Tests Test 01/19/18 04:55 Hemoglobin 8.7 g/dL (12.0-15.5) Hematocrit 25.2 % (36.0-47.0) Mean Corpuscular Hemoglobin Concent 35 g/dL (31-37) Brief Hospital Course 62 year old who presented with knee osteoarthritis, for elective total knee arthroplasty. The patient underwent total knee arthroplasty under general anesthesia the day of admission. Perioperative antibiotics and DVT prophylaxis were used. Postoperatively physical therapy and case management were consulted. The patient progressed and is stable for discharge. Discharge Information Condition at Discharge: Stable Follow Up: Weeks (2) Disposition/Orders: D/C to Home w/ HH Scheduled Carvedilol (Carvedilol), 6.25 MG PO BID, (Reported) Cetirizine Hcl (Cetirizine Hcl), 10 MG PO DAILY, (Reported) Diphenhydramine Hcl (Benadryl), 25 MG PO HS, (Reported) Hydrochlorothiazide (Hydrochlorothiazide Tablet), 12.5 MG PO DAILY, (Reported) Lactobacillus Combo No.10 (Probiotic), 1 EACH PO HS, (Reported) Lisinopril (Lisinopril), 20 MG PO DAILY, (Reported) Meloxicam (Meloxicam), 15 MG PO DAILY, (Reported) Methylphenidate Hcl (Ritalin), 10 MG PO BID, (Reported) Metolazone (Metolazone), 2.5 MG PO DAILY, (Reported) Patient Instructions Patient Instructions Patient Instructions Continue to WBAT with walker. Keep dressing dry and intact. F/U with [facility] in 10-14 days. Call for appointment. Physical therapy for TKA Continue DVT prophylaxis with aspirin 325mg twice daily for 30 days. SOL MARMOLEJO Jan 19, 2018 13:48
[2018-01-19] MEDS ORDERED: ASPI325T11 PO (15:23)
[2018-01-19] MEDS ORDERED: FERR325T14 PO (15:23)
[2018-01-19] MEDS ORDERED: NITR100C PO (15:24)
[2018-01-19] MEDS ORDERED: ONDA4TAB10 PO (15:25)
[2018-01-19] MEDS ORDERED: OXYC-323 PO (15:25)
== END 2018-01-19 15:35 | disposition home health service (06) | DRG 470 ==
LOC: OPSVCIP 06:31 → 4 SOUTHEST 13:16
PROVIDERS: ADMIT Orthopaedic Surgery; ATTEND Orthopaedic Surgery
PROC: 0SRC069 Replacement of Right Knee Joint with Oxidized Zirconium on Polyethylene Synthetic Substitute, Cemented, Open Approach (ICD-10-PCS; principal; 2018-01-16 09:00)
DX: M17.0 Bilateral primary osteoarthritis of knee (principal); I10 Essential (primary) hypertension; B95.2 Enterococcus as the cause of diseases classified elsewhere; Z86.19 Personal history of other infectious and parasitic diseases; Z88.5 Allergy status to narcotic agent; Z88.0 Allergy status to penicillin; Z88.2 Allergy status to sulfonamides; Z79.899 Other long term (current) drug therapy; Z82.49 Family history of ischemic heart disease and other diseases of the circulatory system; Z80.8 Family history of malignant neoplasm of other organs or systems
CPT/HCPCS: 36415; 73560; 81001; 85014; 85018; 86850; 86900; 86901; 87086; 87186; 88305; 88311; 90471; 90756; A7015; C1713; J0171; J0696; J0780; J1100; J1885; J2250; J2270; J2405; J2704; J2710; J2795; J3010; J3260; J3370; J3490; J7030; J7120; Q0162; Q0164; S0028; 97116; 97150; 97530; 97535; A4461; C1769; Q2035

== ENCOUNTER → 2019-01-01 | Outpatient (CLI) | payer OTHER, MEDICAID ==
[2018-01-18 12:45] VITALS: BP 117/80
[~2019-01-01] MED LIST changes: +ASPI325T11 PO; +CARV6.2511 PO; -CARV6.252 PO; +CHOL500016 PO; -CLINDAMYCIN 900MG PREMIX 50 ML IV PRN; +FERR325T14 PO; +HYDR1TAB13 PO; -HYDROcodone/APAP 7.5/325MG 1 TAB TABLET PO PRN; +MAGN71.5 PO; -MELOXICAM 7.5 MG TABLET PO PRN; +NITR100C PO; +ONDA4TAB10 PO; +OXYC1TAB15 PO; -TOBRAMYCIN POWDER 1.2 GM VIAL. ONE; -TRANEXAMIC ACID 1,000 MG in IV NS 50ML -- 1ST BAG INJ ONE; -VANCOMYCIN 1 GM VIAL. ONE
[2019-01-01 11:20] LABS: BASO % 1 % (0-3); EOS # 0.1 x10^3/uL (0.0-0.7); EOS % 2 % (0-3); HEMATOCRIT 38.6 % (36.0-47.0); HEMOGLOBIN 13.3 g/dL (12.0-15.5); LYMPH # 1.1 x10^3/uL (1.0-4.8); LYMPH % 32 % (24-48); MEAN CORPUSCULAR HEMOGLOBIN 31 pg (25-35); MEAN CORPUSCULAR HGB CONC 34 g/dL (31-37); MEAN CORPUSCULAR VOLUME 89 fL (79-100); MONO # 0.5 x10^3/uL (0.0-1.1); MONO % 15 % (0-9); NEUT # 1.7 x10^3/uL (1.8-7.7); NEUT % 50 % (31-73); PLATELET COUNT 137 x10^3/uL (140-400); RED BLOOD COUNT 4.32 x10^6/uL (3.50-5.40); RED CELL DISTRIBUTION WIDTH 13.1 % (11.5-14.5); WHITE BLOOD COUNT 3.4 x10^3/uL (4.0-11.0)
[2019-01-01 11:26] LABS: ALBUMIN 3.9 g/dL (3.4-5.0); CALCIUM 10.3 mg/dL (8.5-10.1); CREATININE 0.8 mg/dL (0.6-1.0); POTASSIUM 3.4 mmol/L (3.5-5.1)
[2019-01-01 11:28] LABS: PROTHROMBIN TIME PATIENT 13.6 SEC (11.7-14.0)
[2019-01-01 12:11] LABS: BILIRUBIN,URINE NEGATIVE (NEG); CLARITY,URINE HAZY; COLOR,URINE YELLOW; HYALINE CASTS, URINE FEW /HPF; NITRITE,URINE POSITIVE (NEG); PH,URINE 5.5; PROTEIN,URINE NEGATIVE (NEG-TRACE); RBC,URINE RARE /HPF (0-2); SQUAMOUS EPITHELIAL CELL,UR FEW /LPF; UROBILINOGEN,URINE 0.2 mg/dL (0.2 mg/dL)
[2019-01-01 12:12] LABS: BACTERIA,URINE MANY /HPF (0-FEW)
--- NOTE | 2019-01-01 14:52 | RAD ---
AP and Lateral Views of the Chest 01/01/2019 10:37 AM Indication: Preoperative Comparison: Chest radiograph December 25, 2017 Findings: There is no focal consolidation or infiltrate identified. Mild atherosclerotic vascular calcification of the aortic arch noted. Heart size appears to be normal. There is no evidence of pneumothorax or pleural effusion. No acute osseous abnormalities are identified. Impression: No evidence of acute cardiopulmonary process. Electronically signed by: Misael Schmidt MD (01/01/2019 2:49 PM) [facility]
--- NOTE | 2019-01-01 18:27 | EKG ---
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
--- NOTE | 2019-01-10 14:55 | NUR ---
FAXED PRE - OP TEST REPORTS TO , PCP AT 1045 AND AT 1057 01/03/2019 AND RECEIVED CONFIRMATIONS IN BOTH OFFICES. FAXED URINE CULTURE'S FINAL REPORT TO AT [address] GARCIA AT 1340 AND 01/04/19 AND RECEIVED TRANSMITTAL CONFIRMATIONS. 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
== END | disposition home or self-care (01) ==
LOC: SURGPAT 10:37
PROVIDERS: ATTEND Orthopaedic Surgery
DX: Z01.818 Encounter for other preprocedural examination (principal); M17.12 Unilateral primary osteoarthritis, left knee; I70.0 Atherosclerosis of aorta; Z88.2 Allergy status to sulfonamides; Z88.0 Allergy status to penicillin; Z79.899 Other long term (current) drug therapy
CPT/HCPCS: 36415; 71046; 80048; 81001; 82040; 82306; 85025; 85610; 85651; 85730; 87086; 87186; 87641; 93005

== ENCOUNTER → 2019-01-15 | Outpatient (CLI) | payer OTHER, MEDICAID ==
[2018-01-18 12:45] VITALS: BP 117/80
[2019-01-15 16:46] LABS: BILIRUBIN,URINE NEGATIVE (NEG); CLARITY,URINE CLEAR; COLOR,URINE YELLOW; NITRITE,URINE NEGATIVE (NEG); PH,URINE 5.5; PROTEIN,URINE NEGATIVE (NEG-TRACE); UROBILINOGEN,URINE 0.2 mg/dL (0.2 mg/dL)
[2019-01-15 16:51] LABS: BACTERIA,URINE 0 /HPF (0-FEW); RBC,URINE 0 /HPF (0-2); SQUAMOUS EPITHELIAL CELL,UR FEW /LPF; WBC,URINE RARE /HPF (0-4)
== END | disposition home or self-care (01) ==
LOC: LAB 15:25
PROVIDERS: ATTEND Orthopaedic Surgery
DX: Z00.00 Encounter for general adult medical examination without abnormal findings (principal); Z88.5 Allergy status to narcotic agent; Z88.0 Allergy status to penicillin; Z88.2 Allergy status to sulfonamides
CPT/HCPCS: 81001; 87086

== ENCOUNTER 2019-01-22 05:39 | Inpatient (IN) | payer OTHER ==
--- NOTE | 2019-01-21 18:50 | PDOC1 ---
History and Physical Date of Admission Date of Admission 01/22/2019 Identification/Chief Complaint Chief Complaint left knee osteoarthritis pain Source Source: Chart review History of Present Illness History of Present Illness Ms. Wolff is a 63-year-old female who presents with left knee pain. She has a history of right total knee arthoplasty done by me on 01/16/18. Her right knee is now her good knee, but her left knee has become progressively painful and interfering with activity. She is more active recently with the right knee feeling better, and has had left knee pain that is interfering with her life much worse the last month. Injections several years ago into the left knee, but she's not interested in doing further left knee injections. [facility], but the left knee was very painful after that. Past Medical History Cardiovascular: CHF, HTN Hepatobiliary: Other Past Surgical History Past Surgical History: Total knee replacement, Other Family History Family History: Cancer, Hypertension Social History Smoke: No ALCOHOL: occassional Drugs: None Current Problem List Problem List left knee osteoarthritis Current Medications Current Medications Current Medications Ondansetron HCl (Zofran) 4 mg PRN Q6HRS PRN IV NAUSEA/VOMITING; Start 01/22/19 at 07:00; Stop 01/23/19 at 06:59 Fentanyl Citrate (Fentanyl 2ml Vial) 25 mcg PRN Q5MIN PRN IV MILD PAIN 1-3; Start 01/22/19 at 07:00; Stop 01/23/19 at 06:59 Fentanyl Citrate (Fentanyl 2ml Vial) 50 mcg PRN Q5MIN PRN IV MODERATE TO SEVERE PAIN; Start 01/22/19 at 07:00; Stop 01/23/19 at 06:59 Ringer's Solution 1,000 ml @ 30 mls/hr Q24H IV ; Start 01/22/19 at 07:00; Stop 01/22/19 at 18:59 Lidocaine HCl (Xylocaine-Mpf 1% 2ml Vial) 2 ml PRN 1X PRN ID PRIOR TO IV START; Start 01/22/19 at 07:00; Stop 01/23/19 at 06:59 Prochlorperazine Edisylate (Compazine) 5 mg PACU PRN PRN IV NAUSEA, MRX1; Start 01/22/19 at 07:00; Stop 01/23/19 at 06:59 Morphine Sulfate 5 mg/Ketorolac Tromethamine 30 mg/Ropivacaine 60 ml/Epinephrine HCl 0.5 mg/Sodium Chloride 100 ml @ 100 mls/hr 1X ONCE INT ART ; Start 01/22/19 at 06:00; Stop 01/22/19 at 06:59 Meloxicam (Mobic) 15 mg 1X PREOP PRN PO PRIOR TO PROCEDURE; Start 01/22/19 at 06:00; Stop 01/22/19 at 18:00 Acetaminophen (Tylenol) 1,000 mg 1X PREOP PRN PO PRIOR TO PROCEDURE; Start 01/22/19 at 06:00; Stop 01/22/19 at 18:00 Clindamycin Phosphate 50 ml @ 100 mls/hr 1X PREOP PRN IV PRIOR TO PROCEDURE; Start 01/22/19 at 06:00; Stop 01/22/19 at 18:00 Tranexamic Acid 1000 mg/Sodium Chloride 60 ml @ 60 mls/hr 1X PERIOP ONCE INJ ; Start 01/22/19 at 06:00; Stop 01/22/19 at 06:59 Tranexamic Acid 1000 mg/Sodium Chloride 60 ml @ 60 mls/hr 1X PERIOP ONCE INJ ; Start 01/22/19 at 08:00; Stop 01/22/19 at 08:59 Active Scripts Active Reported Slow-Mag (Magnesium Chloride) 71.5 Mg Tablet.dr 143 Mg PO DAILY PRN Vitamin D3 (Cholecalciferol (Vitamin D3)) 5,000 Unit Tablet 5,000 Unit PO DAILY Ritalin (Methylphenidate Hcl) 10 Mg Tablet 10 Mg PO BID PRN Vicodin 5-300 Mg Tablet (Hydrocodone Bit/Acetaminophen) 1 Each Tablet 1 Each PO Q6H PRN Ferrous Sulfate 325 Mg Tablet 65 Mg PO DAILY 30 Days Probiotic (Lactobacillus Combo No.10) 1 Each Capsule 1 Each PO HS Cetirizine Hcl 10 Mg Tablet 10 Mg PO DAILY Ritalin (Methylphenidate Hcl) 10 Mg Tablet 10 Mg PO BID Metolazone 2.5 Mg Tablet 2.5 Mg PO DAILY Hydrochlorothiazide Tablet (Hydrochlorothiazide) 12.5 Mg Tablet 12.5 Mg PO DAILY Lisinopril 2.5 Mg Tablet 10 Mg PO DAILY Carvedilol (Carvedilol) 6.25 Mg Tablet 6.25 Mg PO BID Allergies Allergies: Coded Allergies: Penicillins (Verified Allergy, Intermediate, 01/18/18) Sulfa (Sulfonamide Antibiotics) (Verified Allergy, Intermediate, 01/18/18) codeine (Verified Allergy, Mild, TOLERATED MORPHINE IN 2014, 01/18/18) ROS Review of System CONSTITUTIONAL: Fever denies. Chills denies. Weight gain denies. Weakness none. weight loss denies. Fatigue none. OPHTHALMOLOGY: Blurred vision none. Double vision denies. Change in vision none. ENT: Hearing loss none. Change in voice denies. Rhinorrhea none. CARDIOLOGY: Palpitations none. Shortness of breath denies. Chest pain denies. GASTROENTEROLOGY: Diarrhea denies. Vomiting none. Dysphagia none. UROLOGY: Voiding normally yes. Hematuria none. MUSCULOSKELETAL: Chronic back or neck pain denies. Swelling of the feet, hands, ankles and /or legs denies. Joint pain admits. Tingling/numbness no. DERMATOLOGY: Rash denies. Lumps none. NEUROLOGY: Dizziness/lightheadedness denies. Double vision, temporary blindness denies. Tingling/numbness none. PSYCHOLOGY: Change in mood or personality denies. Memory loss none. ENDOCRINOLOGY: Obesity denies. Fatigue none. Weight loss none. HEMATOLOGY/LYMPH: Hepatitis denies. Enlarged lymph nodes denies. Physical Exam General: Alert, Cooperative HEENT: Atraumatic Lungs: Normal air movement Heart: RRR Abdomen: Soft Extremities: No clubbing, No cyanosis, No edema, Normal pulses, Other (The LEFT knee shows a mildly antalgic gait. There is normal alignment. Slight diffuse enlargement. No masses. No detectable effusion. Tenderness on the joint lines. Range of motion is 5-125 degrees. There is crepitus with range of motion, and pain at the extremes of motion. The knee is stable to varus and valgus stress without subluxation or laxity. Muscle strength is slightly weak for the quadriceps 4+/5 which may be due to pain or avoidance, and does not seem neurogenic, and the muscle tone and bulk is slightly decreased. The hamstring strength is 5/5. The skin is normal with no scars, rashes, lesions or ulcers. Light touch sensation is intact. No edema and no varicosities. Dorsalis pedis pulse is intact and capillary refill is normal. ) Skin: No breakdown, No significant lesion Neuro: Normal speech, Sensation intact Images Images [facility] [address] [place] [address] IMAGING REPORT Signed PATIENT: KIMBERLY WOLFF ACCOUNT: [id number] : 1955 LOCATION: [facility] AGE: 63 SEX: F EXAM STATUS: REG CLI ORD. PHYSICIAN: SUPA GARCIA MD REASON: PROCEDURE: KNEE LEFT 3V EXAM: Bilateral knees, standing view; left knee, 2 views. HISTORY: Pain. COMPARISON: 01/16/2018 FINDINGS: A frontal standing view both knees and lateral and sunrise views left knee are obtained. There is a left knee arthroplasty in expected position. There is lateral patellofemoral compartment joint space narrowing, subchondral sclerosis and subchondral cyst formation involving the left knee. There is left knee tricompartmental spurring. There is a moderate left knee effusion. IMPRESSION: 1. Moderate patellofemoral and mild medial and lateral compartment osteoarthritis of the left knee. 2. Moderate left knee effusion. 3. Right knee arthroplasty in expected position. Electronically signed by: Leann Davila MD (12/03/2018 3:08 PM) [facility] DICTATED and SIGNED BY: LEANN DAVILA MD DATE: 12/03/18 1508 VTE Prophylaxis Ordered VTE Prophylaxis Devices: Yes VTE Pharmacological Prophylaxi: Yes Assessment/Plan Assessment/Plan We discussed the potential risks of infection, neurovascular injury, bleeding, blood clots, need for revision surgery, or other potential surgical or anesthetic complications. All of her questions were answered and she desires to proceed with surgery at a mutually convenient date, around February. We also discussed postoperative treatment and expectations. Her right knee implants were: Size 4 right bicruciate stabilized Journey II BCS Oxinium femoral component, size 3 right Journey nonporous tibial baseplate, size 3-4 10 mm right Journey II BCS XLPE articular insert, 35 mm oval Aysha II resurfacing patellar component. Right Knee Findings: Severe osteoarthritis with bone on bone contact including eburnated bone at the patellofemoral joint both on the femur and the patella, and high grade cartilage loss with osteophytes medially and laterally. Also a flexion contracture. Additional 2 mm distal femoral resection due to the flexion contracture. Lateral patella retinacular release required for patella tracking. She is here today for elective left knee arthroplasty. SUPA GARCIA MD Jan 21, 2019 18:50
[2019-01-22] VITALS (10 sets, daily range): BP systolic 78–112; BP diastolic 49–75
[~2019-01-22] VITALS: Ht 157.5 cm; Wt 68.9 kg
[2019-01-22] MEDS ORDERED: MORPHINE SULFATE 5 MG, KETOROLAC 30MG VIAL 30 MG, ROPIVacaine 0.5% PF 60 ML, EPINEPHrin... INT ART ONE ×5 (06:00)
[2019-01-22] MEDS ORDERED: MELOXICAM 7.5 MG TABLET PO PRN (06:00)
[2019-01-22] MEDS ORDERED: TRANEXAMIC ACID 1,000 MG in IV NS 50ML -- 1ST BAG INJ ONE (06:00)
[2019-01-22] MEDS ORDERED: ACETAMINOPHEN 500 MG TABLET PO PRN (06:00)
[2019-01-22] MEDS ORDERED: CLINDAMYCIN 900MG PREMIX 50 ML IV PRN (06:00)
[2019-01-22] MEDS ORDERED: LIDOCAINE 2% PF 5 ML VIAL. ONE (06:43)
[2019-01-22] MEDS ORDERED: ONDANSETRON PF 4 MG/2 ML VIAL. ONE (06:43)
[2019-01-22] MEDS ORDERED: PROPOFOL 20 ML IV ONE (06:43)
[2019-01-22] MEDS ORDERED: ROCURONIUM 50 MG/5 ML VIAL. ONE (06:44)
[2019-01-22] MEDS ORDERED: DEXAMETHASONE SOD PHOS 4 MG/ML VIAL ONE (06:44)
[2019-01-22] MEDS ORDERED: fentaNYL PF VIAL 100 MCG/2 ML VIAL ONE ×2 (06:56→10:08)
[2019-01-22] MEDS ORDERED: TOBRAMYCIN POWDER 1.2 GM VIAL. ONE (06:59)
[2019-01-22] MEDS ORDERED: VANCOMYCIN 1 GM VIAL. ONE ×2 (06:59→07:00)
[2019-01-22] MEDS ORDERED: PROCHLORPERAZINE 10 MG/2 ML VIAL. IV PRN (07:00)
[2019-01-22] MEDS ORDERED: ONDANSETRON PF 4 MG/2 ML VIAL. IV PRN (07:00)
[2019-01-22] MEDS ORDERED: IV RINGERS,LACTATED 1000ML 1,000 ML IV SCH (07:00)
[2019-01-22] MEDS ORDERED: fentaNYL PF VIAL 100 MCG/2 ML VIAL IV PRN ×3 (07:00→11:45)
[2019-01-22] MEDS ORDERED: LIDOCAINE 1% PF 2 ML VIAL. ID PRN (07:00)
[2019-01-22] MEDS ORDERED: SEVOFLURANE 61 TO 120 MINUTES. IH ONE (07:54)
[2019-01-22] MEDS ORDERED: TRANEXAMIC ACID 1,000 MG in IV NS 50ML -- 2ND BAG INJ ONE (08:00)
[2019-01-22] MEDS ORDERED: PHENYLEPHRINE in 0.9% NACL PF 1 MG/10 ML SYRINGE. IV ONE (09:19)
[2019-01-22] MEDS: fentaNYL PF VIAL 100 MCG/2 ML VIAL IV PRN ×2 (10:00→10:15)
--- NOTE | 2019-01-22 10:01 | PDOC4 ---
Operative Note Operative Note Date of Procedure: January 22, 2019 Pre-Op Diagnosis: Unilateral primary osteoarthritis, left knee. M17.12 Post-Op Diagnosis: same Procedure: left total knee arthroplasty with patella resurfacing, CPT 01099 Surgeon: Supa Wilkinson MD Land Surveyor: Xavier Duvall APRN and Edilia YANCEY Anesthesia: General EBL: 150 mL Specimens Obtained: left knee bone and soft tissue Complications: none Implant Company: [employer] Drains: hemovac plus pain catheter Tourniquet time: 59 Minutes Tourniquet Pressure: 350 mm Hg Indications for Procedure: Arthritis pain unrelieved by nonoperative management Findings: Severe osteoarthritis with bone on bone contact at the patellofemoral joint, with an eburnated patellofemoral joint, and full thickness cartilage loss in the medial and lateral tibiofemoral joints. The bone quality is osteoporotic, for example the fixation pins for the femoral cutting guide felt like they were being pinned into Styrofoam. I was very gentle with implantation to avoid fractures. Fortunately methyl methacrylate bone cement interdigitates well into porotic bone. Implants used: Size 3 left bicruciate stabilized Journey II BCS Oxinium femoral component, size 3 left Journey nonporous tibial baseplate, size 3-4 10 mm left Journey II BCS XLPE articular insert, 32 mm oval Aysha II resurfacing patellar component Procedure in Detail: The patient was identified in the preoperative holding area, and the correct left lower extremity was marked by me. The patient was taken to the operating room where the patient was anesthetized by the Department of Anesthesia. Preoperative antibiotics were given intravenously. Tranexamic acid 1 g was given intravenously for intraoperative hemostasis. A "time-out" procedure was performed. The patient was positioned supine on the operative table with a tourniquet on the upper left thigh. A lateral thigh brace and heel bump were attached to the operating table for later intraoperative positioning. The left lower limb was thoroughly scrubbed, then sterile Chloraprep solution was appl ied, and the limb was draped in sterile fashion. An impervious stockinet and an adhesive drape were used such that the skin was entirely covered. The operating team wore personal exhaust-ventilated hoods. The limb was exsanguinated with an Esmarch bandage, and the tourniquet was inflated. A midline skin incision was made with a scalpel using the patella and tibial tubercle as landmarks. Electrocautery was used for hemostasis. My kennel assistant used rake retractors. A medial parapatellar arthrotomy incision was used with extension into the distal quadriceps tendon. The patella was retracted laterally and Hohmann retractors were now used by my kennel assistant. Excess synovium, the menisci, and the cruciate ligaments were resected sharply. A periarticular multimodal ropivacaine anesthetic injection was used in the suprapatellar pouch and distal quadriceps muscle. The patella was everted and exposed. The patella thickness was measured with a caliper, and then cut freehand with a saw, using caliper measurements to assess the resection. The lateral retinaculum was partially released from the lateral patella using electrocautery. Rongeurs were used to make sure there were no remaining exposed patellar osteophytes medially or laterally. The patella was sized, and then drilled for an oval three-peg patella component. Whitesides's line and the transepicondylar axis were marked on the femur. An intramedullary entry drill was used at the intersection of Dennis's line with the transepicondlyar axis, and an intramedullary guide was applied at 5 degrees of valgus. The distal femoral cut was cut as planned with 2 mm additional resection due to the flexion contracture and bone deficiency. A posterior referencing guide was pinned to the femur, and the rotational alignment was matched to the Stanton's line at 3 degrees of external rotation. The femoral cutting block was adjusted 1 mm anteriorly to prevent femoral notching. My kennel assistant held Hohmann retractors and an [place] retractor to protect the medial and lateral collateral ligaments, the patellar tendon, the skin and the other soft tissues. A 5-in-1 Journey II cutting guide was then applied and pinned to the femur. The posterior, anterior, and all chamfer cuts were made with the oscillating saw. An extramedullary guide was pinned to the tibia and rotational alignment and the planned resection thickness assessed. An external alignment stephen was used to verify the planned cut in the varus-valgus plane and regarding posterior slope referencing the tibial tubercle, the tibial shaft, the ankle joint, and the second metatarsal. The upper tibia was cut made with an oscillating saw. My kennel assistant held Hohmann retractors and a posterior cruciate ligament retractor to protect the medial and lateral collateral ligaments, the patellar tendon, the skin, the peroneal nerve and the other soft tissues. The upper tibia was sized with a trial baseplate. The posterior compartment was cleared of osteophytes and loose bodies. The periarticular anesthetic injection was used in the posterior compartment. The box cut for a posterior stabilized component was made. A preliminary reduction was performed with a trial femur, trial tibial baseplate and trial polyethylene. Soft-tissue balancing was now performed, and extension and rotation of the alignments was checked using a guide stephen in the tibial trial and a guide pin in the femur. No additional releases were required. The stability was assessed using different thicknesses of tibial articular surface to find satisfactory stability and good range of motion. The rotation of the tibial component was marked on the upper tibia. Final trial reduction was now performed verifying patella tracking and tibiofemoral stability and alignment. The tibia preparation was completed with a drill, saw, and fin punch at the previously noted rotation. The final implants were verified and opened. Outer gloves were changed by the operating team. Betadine lavage was used. The bone cuts were irrigated with saline using the Boedo InterPulse device and then dried with suction and laparotomy sponges. Two packages of [employer] HV bone cement were mixed in powdered form with Vancomycin 1gm and Tobramycin 1.2 gm, and then vacuum-mixed with the monomer, and placed into a cement gun. The cut surfaces of the bone were thoroughly dried with suction and with laparotomy sponges for cement interdigitation. The final components were cemented into place. The knee was kept at full extension while the cement hardened, and excess cement was removed. A Betadine lavage was used throughout the surgical exposure, and allowed to sit in contact with the exposed joint surfaces for three minutes while the cement hardened. Tranexamic acid 1 g was redosed intravenously for additional intraoperative hemostasis. The tourniquet was released, and electrocautery was used for hemostasis. A final periarticular anesthetic injection was used for pain relief. A final check of [id number] and stability was made, and the polyethylene implant final size was chosen. The polyethylene implant was secured to the tibial baseplate, and the knee was reduced a final time and range of motion and stability was confirmed. Thorough irrigation was used. Hemovac and pain catheter were used. Topical Vancomycin 1 gm was used during the closure. The arthrotomy was closed with interrupted [id number] #1 PDS suture. The arthrotomy incision was then run with #1 STRATAFIX Symmetric PDS Plus Knotless suture. The subcutaneous tissues were reapproximated initially with 2-0 PDS. Next the subcuticular layer was reapproximated in a running fashion with #3-0 Stratafix suture by my kennel assistant. The skin incision was then covered and reinforced by my kennel assistant with Acticoat, followed by a NIMCO single use negative pressure wound therapy dressing Soft roll and an Azam wrap were applied. Needle and sponge counts were correct. There were no apparent complications. The patient returned to the recovery room in stable condition. SUPA WILKINSON MD Jan 22, 2019 10:01
[2019-01-22] MEDS ORDERED: PROCHLORPERAZINE 10 MG/2 ML VIAL. ONE (10:04)
--- NOTE | 2019-01-22 11:37 | NUR ---
Rec'd from PACU per bed alert & drowsy, states discomfort level 11/24, outer wrap to LLE clean dry & intact, with NIMCO dressing, IAC capped & Hemovac in place, SCD to RLE, JO ANN to LLE, see admission, oriented to surroundings, side rails up x3, call light within reach
[2019-01-22] MEDS ORDERED: DEXTROSE 50% 25 GM / 50ML DISP.SYRIN. IV PRN (11:45)
[2019-01-22] MEDS ORDERED: diphenhydrAMINE 50 MG/ML VIAL IV PRN (11:45)
[2019-01-22] MEDS ORDERED: CALCIUM CARBONATE 500 MG TAB.CHEW PO PRN (11:45)
[2019-01-22] MEDS ORDERED: MORPHINE SULFATE 2 MG/ML VIAL. IV PRN (11:45)
[2019-01-22] MEDS ORDERED: 0.9 % SODIUM CHLORIDE 10 ML DISP.SYRIN. IV PRN (11:45)
[2019-01-22] MEDS ORDERED: METOCLOPRAMIDE HCL 10 MG/2 ML VIAL. IV PRN (11:45)
[2019-01-22] MEDS ORDERED: MORPHINE SULFATE 4 MG/ML VIAL. IV PRN (11:45)
[2019-01-22] MEDS ORDERED: ZOLPIDEM 5 MG TABLET. PO PRN (11:45)
[2019-01-22] MEDS ORDERED: PROCHLORPERAZINE 5 MG TABLET. PO PRN (11:45)
[2019-01-22] MEDS: CLINDAMYCIN 900MG PREMIX 50 ML IV SCH ×2 (12:53→19:53)
--- NOTE | 2019-01-22 13:18 | RAD ---
EXAM: Left knee, 2 views. HISTORY: Arthroplasty. COMPARISON: None. FINDINGS: 2 views left knee are obtained. There is a left knee arthroplasty in expected position. There is surrounding soft tissue gas, joint fluid and a surgical drain due to recent surgery. IMPRESSION: Left knee arthroplasty in expected position. Electronically signed by: Leann Vivas MD (01/22/2019 1:15 PM) [facility]
--- NOTE | 2019-01-22 14:10 | NUR ---
ambulates with nursing and PT; tolerated fair. remains hypotensive; iv fluids increased to 100 cc hr
[2019-01-22] MEDS: oxyCODONE/APAP 5/325 1 TAB TABLET PO PRN ×2 (16:41→21:08)
[2019-01-22] MEDS: ONDANSETRON ODT 4 MG TAB.RAPDIS. PO SCH (16:41)
[2019-01-22] MEDS: IV NORMAL SALINE 1000ML BAG 1,000 ML IV SCH (16:42)
[2019-01-22] MEDS: CARVEDILOL 6.25 MG TABLET. PO SCH (16:42)
[2019-01-22] MEDS: ONDANSETRON PF 4 MG/2 ML VIAL. IV SCH (18:00)
[2019-01-22] MEDS: KETOROLAC 30MG VIAL 30 MG, BUPIVACAINE MPF 0.25% 20 ML, EPINEPHrine 0.5 MG in TOTAL VOL... INT ART SCH (18:27)
[2019-01-22] MEDS: ASPIRIN ENTERIC COATED 325 MG TABLET.DR. PO SCH (20:46)
[2019-01-23] MEDS: CLINDAMYCIN 900MG PREMIX 50 ML IV SCH (02:22)
[2019-01-23 02:48] VITALS: BP 95/58
[2019-01-23 04:05] LABS: HEMATOCRIT 26.9 % (36.0-47.0); HEMOGLOBIN 9.1 g/dL (12.0-15.5)
[2019-01-23] MEDS: KETOROLAC 30MG VIAL 30 MG, BUPIVACAINE MPF 0.25% 20 ML, EPINEPHrine 0.5 MG in TOTAL VOL... INT ART SCH (05:48)
[2019-01-23] MEDS: ONDANSETRON ODT 4 MG TAB.RAPDIS. PO SCH ×3 (05:49→11:29)
[2019-01-23] MEDS: ONDANSETRON PF 4 MG/2 ML VIAL. IV SCH ×3 (05:59→12:00)
[2019-01-23] MEDS ORDERED: MAGNESIUM HYDROXIDE 2,400 MG/30 ML ORAL.SUSP. PO PRN (06:00)
[2019-01-23 06:11] VITALS: BP 100/66
--- NOTE | 2019-01-23 07:30 | PDOC ---
ORTHO PROGRESS NOTES Subjective Patient is just beginning to feel some mild pain and asking for medication, Post-op Day: 1 Procedure L TKA Vitals Vital Signs Date Time Temp Pulse Resp B/P (MAP) Pulse Ox O2 Delivery O2 Flow Rate FiO2 01/23/19 06:11 97.5 82 20 100/66 (77) 95 Room Air 97.5 01/22/19 10:30 10 Labs Laboratory Tests Test 01/23/19 03:50 Hemoglobin 9.1 g/dL (12.0-15.5) Hematocrit 26.9 % (36.0-47.0) Mean Corpuscular Hemoglobin Concent 34 g/dL (31-37) Laboratory Tests Test 01/23/19 03:50 Hemoglobin 9.1 g/dL (12.0-15.5) Hematocrit 26.9 % (36.0-47.0) Mean Corpuscular Hemoglobin Concent 34 g/dL (31-37) Notes awake and alert Assessment and Plan POD # 1 S/P L TKA motor and sensation intact distally drain with no output dressing dry and intact Patient reports doing well getting out of bed to restroom last night. PT today ALHAJI DAVIS APRN Jan 23, 2019 07:29
[2019-01-23] MEDS: ASPIRIN ENTERIC COATED 325 MG TABLET.DR. PO SCH ×2 (07:42→20:37)
[2019-01-23] MEDS: CHOLECALCIFEROL (VITAMIN D3) 5,000 UNIT CAPSULE PO SCH (07:42)
[2019-01-23] MEDS: MULTIVITAMIN with MINERAL TABLET. PO SCH (07:42)
[2019-01-23] MEDS: SENNOSIDES/DOCUSATE 8.6/50MG TABLET. PO SCH (07:43)
[2019-01-23] MEDS: MELOXICAM 7.5 MG TABLET PO SCH (07:43)
[2019-01-23] MEDS: CETIRIZINE HCL 10 MG TABLET. PO SCH (07:43)
[2019-01-23 07:44] VITALS: BP 97/63
[2019-01-23] MEDS: oxyCODONE/APAP 5/325 1 TAB TABLET PO PRN ×4 (07:44→22:16)
[2019-01-23] MEDS: CARVEDILOL 6.25 MG TABLET. PO SCH ×2 (07:45→17:00)
--- NOTE | 2019-01-23 07:45 | NUR ---
BP still low. Held am bp meds. Continuing IVF's. Encourage po fluid intake.
[2019-01-23] MEDS: metOLazone 2.5 MG TABLET PO SCH (09:00)
[2019-01-23] MEDS: hydroCHLOROthiazide 12.5 MG CAPSULE PO SCH (09:00)
[2019-01-23] MEDS: IV NORMAL SALINE 1000ML BAG 1,000 ML IV SCH ×2 (14:00→20:33)
[2019-01-23] MEDS ORDERED: BISACODYL 10 MG SUPP.RECT. PR PRN (16:00)
--- NOTE | 2019-01-23 17:02 | PDOC ---
PROGRESS NOTES Subjective Subjective Pain controlled. Had hypotension per nursing, and IV fluid bolus given, HTN meds were held. Objective Vital Signs Vital Signs Date Time Temp Pulse Resp B/P (MAP) Pulse Ox O2 Delivery O2 Flow Rate FiO2 01/23/19 12:27 Room Air 01/23/19 07:45 81 97/63 01/23/19 06:11 97.5 20 95 97.5 01/22/19 10:30 10 Physical Exam Dressing intact and dry. Hemovac and pain catheter have been removed. Thigh and calf soft. Good active range of motion of foot including dorsiflexion and plantar flexion. Cap refill at toes intact. No signs of compartment syndrome, DVT or neurovascular injury. Labs Laboratory Tests Test 01/23/19 03:50 Hemoglobin 9.1 g/dL (12.0-15.5) Hematocrit 26.9 % (36.0-47.0) Mean Corpuscular Hemoglobin Concent 34 g/dL (31-37) Laboratory Tests Test 01/23/19 03:50 Hemoglobin 9.1 g/dL (12.0-15.5) Hematocrit 26.9 % (36.0-47.0) Mean Corpuscular Hemoglobin Concent 34 g/dL (31-37) Imaging Postop X-rays reviewed by me. Satisfactory TKA alignment, without apparent complications. Assessment Assessment POD 1 TKA. Postoperative hypotension 97/63 and postoperative blood loss anemia 9.1. Plan Plan of Care Continue to monitor blood pressure closely--BP meds held today, can restart if BP improves. Recheck hgb in am with postoperative blood loss anemia, and if hypotension persists, would consider transfusion. SUPA GARCIA MD Jan 23, 2019 17:02
[2019-01-23 17:43] VITALS: BP 102/68
[2019-01-23] MEDS ORDERED: ONDANSETRON PF 4 MG/2 ML VIAL. IV PRN (18:00)
[2019-01-23] MEDS ORDERED: ONDANSETRON ODT 4 MG TAB.RAPDIS. PO PRN (18:00)
--- NOTE | 2019-01-23 18:06 | PATHOLOGY ---
[facility] Accession Number: [id number] . 01 Material submitted: . knee - LEFT KNEE BONE AND TISSUE. Modifiers: left . 01 Clinical history: . DJD . 02 Diagnosis: Segments of bone and soft tissue, left total knee arthroplasty: - Advanced degenerative arthritis. - Papillary chronic synovitis. (JPM:progress clerk; 01/23/2019) MBR 01/23/2019 1619 Local . 02 Comment: The synovial tissue has a focally papillary appearance and shows chronic inflammation with prominent numbers of plasma cells. The latter may be seen with rheumatoid arthritis. Correlate clinically. (JPM:progress clerk; 01/23/2019) . 02 Electronically signed: . Hesham Centeno MD, Pathologist NPI- [id number] . 01 Gross description: . The specimen is received in formalin, labeled "Kathryn Wolff, left knee bone and tissue" and consists of multiple segments of myers yellow bone including the tibial plateau measuring 11.3 x 10.0 x 2.3 cm in aggregate. There is focal attached yellow lobulated tissue. The meniscus is absent. The articular surfaces display extensive areas of eburnation. Chopper Gun Operator sections are submitted in A1 following decalcification. (SDY; 01/22/2019) SYU/SYU 01/23/2019 1617 Local . 02 Pathologist provided ICD-10: M17.12, M65.862 . 02 CPT . 873318, 209430 Specimen Comment: A courtesy copy of this report has been sent to Specimen Comment: [phone]. Specimen Comment: Report sent to Performed at: [address], [place], [place] [id number] MD Gwyn Pearson MD Phone: [phone] Performed at: 02 [facility] [address] [place], [place] [id number] MD Hesham Centeno MD Phone: [phone]
[2019-01-24] MEDS: oxyCODONE/APAP 5/325 1 TAB TABLET PO PRN ×5 (03:41→22:08)
[2019-01-24 04:57] LABS: HEMATOCRIT 27.7 % (36.0-47.0); HEMOGLOBIN 9.4 g/dL (12.0-15.5)
[2019-01-24 06:11] VITALS: BP 127/82
[2019-01-24] MEDS: hydroCHLOROthiazide 12.5 MG CAPSULE PO SCH (07:59)
[2019-01-24] MEDS: CHOLECALCIFEROL (VITAMIN D3) 5,000 UNIT CAPSULE PO SCH (07:59)
[2019-01-24] MEDS: MULTIVITAMIN with MINERAL TABLET. PO SCH (07:59)
[2019-01-24] MEDS: SENNOSIDES/DOCUSATE 8.6/50MG TABLET. PO SCH (08:00)
[2019-01-24] MEDS: CETIRIZINE HCL 10 MG TABLET. PO SCH (08:00)
[2019-01-24] MEDS: ASPIRIN ENTERIC COATED 325 MG TABLET.DR. PO SCH ×2 (08:00→20:33)
[2019-01-24] MEDS: CARVEDILOL 6.25 MG TABLET. PO SCH ×2 (08:01→17:33)
[2019-01-24] MEDS: metOLazone 2.5 MG TABLET PO SCH (08:01)
[2019-01-24] MEDS: MELOXICAM 7.5 MG TABLET PO SCH (08:01)
[2019-01-24] MEDS ORDERED: MAGNESIUM HYDROXIDE 2,400 MG/30 ML ORAL.SUSP. PO PRN (08:15)
--- NOTE | 2019-01-24 08:15 | NUR ---
Assisted pt up to bathroom from bed. C/o lightheadedness. BP 130/78 and hrt rate 87. Instructed pt to get up slowly and no sudden movements when getting up. Also encourage po fluids intake. Cont. monitor.
--- NOTE | 2019-01-24 12:27 | PDOC ---
PROGRESS NOTES Subjective Subjective Pain controlled. No major complaints. Lightheaded when up. Objective Vital Signs Vital Signs Date Time Temp Pulse Resp B/P (MAP) Pulse Ox O2 Delivery O2 Flow Rate FiO2 01/24/19 10:07 Room Air 01/24/19 08:01 87 130/78 01/24/19 06:11 98.1 22 95 98.1 01/22/19 10:30 10 Physical Exam NIMCO dressing intact. Pain catheter and drain have been removed--the hemovac apparently was partway out and now working correctly so now her leg is fairly swollen. Calf soft and nontender. Good AROM of ankle. Minimal erythema/warmth. Not yet safely ambulating with walker. Requires PT or nursing assistance, and gait belt for safe transition from chair or bed to walker. Labs Laboratory Tests Test 01/23/19 03:50 01/24/19 04:15 Hemoglobin 9.1 g/dL (12.0-15.5) 9.4 g/dL (12.0-15.5) Hematocrit 26.9 % (36.0-47.0) 27.7 % (36.0-47.0) Mean Corpuscular Hemoglobin Concent 34 g/dL (31-37) 34 g/dL (31-37) Laboratory Tests Test 01/24/19 04:15 Hemoglobin 9.4 g/dL (12.0-15.5) Hematocrit 27.7 % (36.0-47.0) Mean Corpuscular Hemoglobin Concent 34 g/dL (31-37) Assessment Assessment POD #2 TKA. BP better today. Still has postop anemia 9.4 Plan Plan of Care Check Hgb in am. Still with symptomatic postop anemia. Follow swelling. Would consider aspiration if hemarthrosis is worse. Continue POC. Discharge planning for tomorrow. Aspirin 325 mg po BID and mobilization for DVT prophylaxis SUPA GARCIA MD Jan 24, 2019 12:27
[2019-01-24 17:38] VITALS: BP 111/66
[2019-01-25] MEDS: oxyCODONE/APAP 5/325 1 TAB TABLET PO PRN ×2 (02:44→08:16)
[2019-01-25 04:32] LABS: HEMATOCRIT 27.9 % (36.0-47.0); HEMOGLOBIN 9.7 g/dL (12.0-15.5)
[2019-01-25 06:00] VITALS: BP 109/64
[2019-01-25] MEDS: metOLazone 2.5 MG TABLET PO SCH (08:00)
--- NOTE | 2019-01-25 08:00 | NUR ---
Held metolazone and hctz this am. BP 109/74. Cont. monitor.
[2019-01-25] MEDS: CETIRIZINE HCL 10 MG TABLET. PO SCH (08:05)
[2019-01-25] MEDS: MULTIVITAMIN with MINERAL TABLET. PO SCH (08:05)
[2019-01-25] MEDS: MELOXICAM 7.5 MG TABLET PO SCH (08:07)
--- NOTE | 2019-01-25 08:07 | SNU/HH DC ---
DISCHARGE WITH HOME HEALTH DISCHARGE INFORMATION: Discharge Date: Jan 25, 2019 Final Diagnosis: left knee osteoarthritis. aftercare following left knee joint replacement Condition on Discharge: Stable CODE STATUS: Code Status: Full HOME HEALTH: Face to Face: I certify this patient is under my care and that I, or a nurse practitioner or physician's welder assistant working with me, had a face to face encounter that meets the physician face to face encounter requirements with this patient on 01/24/2019. Medical Complications: S/P Joint Replacement RN For Eval/Treatment: No Physical Therapy For: Evalulation/Treatment Occupational Therapy For: Evaluation/Treatment Pt Meets Homebound Status: Poor coordination w/ amb., Limited distance walking POST DISCHARGE ORDERS: Activity Instructions for Disc: Activity as tolerated Weight Bearing Status after Di: Full weight bearing, Other, see below Bathing Instructions: Shower-keep dressing dry DIET AFTER DISCHARGE: Regular Wound/Incision Care: Keep wound/cast CDI, Do not change dressing Other wound/incision instructi: cut NIMCO battery pack off, leave remaining NIMCO dressing intact with tail FOLLOW-UP: Follow up with: Dr. Wilkinson in 10-14 days TREATMENT/EQUIPMENT ORDERS: Adaptive Equipment Issued: Front wheeled walker CERTIFICATION STATEMENT: Certification Statement: Certification Statement: Based on the above finding, I certify that this patient is confined to the home and needs intermittent jail care, physical therapy and/or speech therapy, or continues to need occupational therapy.~ This patient is under my care, and I have initiated the establishment of the plan of care.~ This patient will be followed by myself or a community physician who will periodically review the plan of care. Home Meds Reported Medications Magnesium Chloride (SLOW-MAG) 71.5 Mg Tablet., 143 MG PO DAILY PRN for SUPP, TAB.SR 01/01/19 Cholecalciferol (Vitamin D3) (VITAMIN D3) 5,000 Unit Tablet, 5000 UNIT PO DAILY for SUPP, TAB 01/01/19 Methylphenidate Hcl (RITALIN) 10 Mg Tablet, 10 MG PO BID PRN for ADD, TAB 01/01/19 Hydrocodone Bit/Acetaminophen (VICODIN 5-300 MG TABLET) 1 Each Tablet, 1 EACH PO Q6H PRN for PAIN, TAB 0 Refills 01/01/19 Ferrous Sulfate (FERROUS SULFATE) 325 Mg Tablet, 65 MG PO DAILY for PRESURGERY for 30 Days, #6 TAB 01/19/18 Lactobacillus Combo No.10 (PROBIOTIC) 1 Each Capsule, 1 EACH PO HS, CAP 12/26/17 Cetirizine Hcl (CETIRIZINE HCL) 10 Mg Tablet, 10 MG PO DAILY, TAB 12/26/17 Methylphenidate Hcl (RITALIN) 10 Mg Tablet, 10 MG PO BID, TAB 12/26/17 Metolazone (METOLAZONE) 2.5 Mg Tablet, 2.5 MG PO DAILY, #30 TAB 0 Refills 12/26/17 Hydrochlorothiazide (HYDROCHLOROTHIAZIDE TABLET) 12.5 Mg Tablet, 12.5 MG PO DAILY for DIURETIC, TAB 0 Refills 12/26/17 Lisinopril (LISINOPRIL) 2.5 Mg Tablet, 10 MG PO DAILY for HTN, #30 TAB 0 Refills 09/18/13 Carvedilol (CARVEDILOL ) 6.25 Mg Tablet, 6.25 MG PO BID, TAB 09/18/13 SUPA WILKINSON MD Jan 25, 2019 08:06
[2019-01-25] MEDS: ASPIRIN ENTERIC COATED 325 MG TABLET.DR. PO SCH (08:08)
[2019-01-25 08:09] VITALS: BP 109/74
[2019-01-25] MEDS: CARVEDILOL 6.25 MG TABLET. PO SCH (08:09)
[2019-01-25] MEDS: CHOLECALCIFEROL (VITAMIN D3) 5,000 UNIT CAPSULE PO SCH (08:09)
[2019-01-25] MEDS: SENNOSIDES/DOCUSATE 8.6/50MG TABLET. PO SCH (08:09)
--- NOTE | 2019-01-25 08:15 | NUR ---
Feeling better this morning. No further c/o lightheadedness. Assisted pt to bathroom. Anxious today due later today. AM cares completed. Cont. monitor.
[2019-01-25] MEDS ORDERED: ASPI325T11 PO (08:25)
[2019-01-25] MEDS ORDERED: OXYC1TAB15 PO (08:27)
[2019-01-25] MEDS: hydroCHLOROthiazide 12.5 MG CAPSULE PO SCH (09:00)
--- NOTE | 2019-01-25 09:15 | NUR ---
Discharge instructions given with prescription. Answered questions and concerns. Verbalized understanding. Pt discharged home with home health.
--- NOTE | 2019-01-25 17:06 | PDOC3 ---
Discharge Summary Visit Information Date of Admission: Jan 22, 2019 Date of Discharge: Jan 25, 2019 Admitting Diagnosis: left knee osteoarthritis Final Diagnosis left knee osteoarthritis aftercare following left total knee joint replacement Brief Hospital Course Allergies Allergies Coded Allergies Type Severity Reaction Last Updated Verified Penicillins Allergy Intermediate 01/18/18 Yes Sulfa (Sulfonamide Antibiotics) Allergy Intermediate 01/18/18 Yes codeine Allergy Mild TOLERATED MORPHINE IN 201301/18/18 Yes Vital Signs Vital Signs Date Time Temp Pulse Resp B/P (MAP) Pulse Ox O2 Delivery O2 Flow Rate FiO2 01/25/19 08:16 Room Air 01/25/19 08:09 98 109/74 01/25/19 06:00 98.4 18 95 98.4 Lab Results Laboratory Tests Test 01/24/19 04:15 01/25/19 03:55 Hemoglobin 9.4 g/dL (12.0-15.5) 9.7 g/dL (12.0-15.5) Hematocrit 27.7 % (36.0-47.0) 27.9 % (36.0-47.0) Mean Corpuscular Hemoglobin Concent 34 g/dL (31-37) 35 g/dL (31-37) Laboratory Tests Test 01/25/19 03:55 Hemoglobin 9.7 g/dL (12.0-15.5) Hematocrit 27.9 % (36.0-47.0) Mean Corpuscular Hemoglobin Concent 35 g/dL (31-37) Brief Hospital Course 63 year old who presented with knee osteoarthritis, for elective total knee arthroplasty. The patient underwent total knee arthroplasty under general anesthesia the day of admission. Perioperative antibiotics and DVT prophylaxis were used. Postoperatively physical therapy and case management were consulted. The patient progressed and is stable for discharge. Discharge Information Condition at Discharge: Stable Follow Up: Weeks Disposition/Orders: D/C to Home w/ HH Scheduled Aspirin (Aspirin Ec), 1 TAB PO BID, (Reported) Carvedilol (Carvedilol ), 6.25 MG PO BID, (Reported) Cetirizine Hcl (Cetirizine Hcl), 10 MG PO DAILY, (Reported) Cholecalciferol (Vitamin D3) (Vitamin D3), 5,000 UNIT PO DAILY, (Reported) Ferrous Sulfate (Ferrous Sulfate), 65 MG PO DAILY, (Reported) Hydrochlorothiazide (Hydrochlorothiazide Tablet), 12.5 MG PO DAILY, (Reported) Lactobacillus Combo No.10 (Probiotic), 1 EACH PO HS, (Reported) Lisinopril (Lisinopril), 10 MG PO DAILY, (Reported) Metolazone (Metolazone), 2.5 MG PO DAILY, (Reported) Scheduled PRN Magnesium Chloride (Slow-Mag), 143 MG PO DAILY PRN for SUPP, (Reported) Methylphenidate Hcl (Ritalin), 10 MG PO BID PRN for ADD, (Reported) Oxycodone/Apap 5-325 (Percocet 5-325 Mg Tablet ), 1-2 TAB PO PRN Q4HRS PRN for PAIN, (Reported) Discontinued Medications Hydrocodone Bit/Acetaminophen (Vicodin 5-300 Mg Tablet), 1 EACH PO Q6H PRN for PAIN, (Reported) Methylphenidate Hcl (Ritalin), 10 MG PO BID, (Reported) Patient Instructions Patient Instructions Continue to weight bearing as tolerated with walker. Keep NIMCO dressing intact and dry. Cut off NIMCO "tail" and throw away battery pack on the 7th day after surgery. Tape down NIMCO tail Leave NIMCO dressing intact otherwise. Follow up with Dr. Wilkinson's office in 10-14 days. Call for appointment unless already scheduled. Continue enteric coated aspirin 325 mg by mouth twice a day for 30 days to prevent blood clots. SUPA WILKINSON MD Jan 25, 2019 17:06
== END 2019-01-25 09:15 | disposition home health service (06) | DRG 470 ==
LOC: SURG 05:39 → EDSTATUS 07:10 → 4 SOUTHEST 11:19 → OBSVTOIN 11:19 → 4 SOUTHEST 11:20
PROVIDERS: ADMIT Orthopaedic Surgery; ATTEND Orthopaedic Surgery
PROC: 0SRD069 Replacement of Left Knee Joint with Oxidized Zirconium on Polyethylene Synthetic Substitute, Cemented, Open Approach (ICD-10-PCS; principal; 2019-01-22 07:10)
DX: M17.12 Unilateral primary osteoarthritis, left knee (principal); D62 Acute posthemorrhagic anemia; I95.81 Postprocedural hypotension; Z88.0 Allergy status to penicillin; Z88.2 Allergy status to sulfonamides; Z88.8 Allergy status to other drugs, medicaments and biological substances; Z79.899 Other long term (current) drug therapy; I11.0 Hypertensive heart disease with heart failure; I50.9 Heart failure, unspecified; Z96.651 Presence of right artificial knee joint; M81.0 Age-related osteoporosis without current pathological fracture; Z82.49 Family history of ischemic heart disease and other diseases of the circulatory system
CPT/HCPCS: 36415; 73560; 85014; 85018; 86850; 86900; 86901; 88305; 88311; A7015; C1713; J0171; J0780; J1100; J1885; J2001; J2270; J2370; J2405; J2704; J2795; J3010; J3260; J3370; J3490; J7030; J7120; Q0162; 97116; 97150; 97530; 97535; A4461; C1769; G0378

== ENCOUNTER → 2020-09-03 | Outpatient (CLI) | payer OTHER, MEDICAID ==
[~2020-09-03] MED LIST changes: +CONTRAST GIVEN. MC PRN; +IOHEXOL 240 MG/ML 50ML VIAL. PO ONE; +IOHEXOL 300 MG/ML 100ML VIAL. IV ONE
--- NOTE | 2020-09-03 13:01 | RAD ---
EXAM: Abdomen and pelvis CT with intravenous contrast. HISTORY: Pain. TECHNIQUE: Computed tomographic images of the abdomen and pelvis were obtained following the administ ration of intravenous contrast. Multiplanar reformatting was performed. *One or more of the following individualized dose reduction techniques were utilized for this examina tion: 1. Automated exposure control. 2. Adjustment of the mA and/or kV according to patient size. 3. Use of iterative reconstruction technique. COMPARISON: None. FINDINGS: Evaluation of the lower thorax demonstrates posterior dependent and basilar atelectasis. Th ere is no infiltrate or pleural effusion. There are multiple small hypodense lesions throughout the l iver, the largest of which measures 1.1 cm. The largest lesions are consistent with cysts. The smalle st lesions are too small to characterize. There is a 2 mm calcification along the gallbladder wall due to a nonmobile stone or wall calcificati on. There is no evidence of cholecystitis. The pancreas is unremarkable. The spleen is mildly enlarge d. The adrenal glands and kidneys are unremarkable. There is no appendicitis. There is no bowel obstruction. There is distal colonic diverticulosis. Ther e is no diverticulitis. The bladder is unremarkable. The uterus is absent. There is no adnexal lesion . The aorta is normal in caliber. There is aortic and aortic branch vessel atherosclerosis. There is no acute or suspicious osseous finding. There are a few incidental osseous hemangiomas. IMPRESSION: 1. Multiple hypodense lesions throughout the liver, the largest of which are consistent with cysts. T he smallest lesions are too small to characterize. In the absence of known malignancy, these are also likely cysts. 2. Punctate gallbladder wall calcification or adherent gallstone. 3. Distal colonic diverticulosis. Electronically signed by: Leann Vivas MD (09/03/2020 12:59 PM) [id number]
== END ==
LOC: CT 10:53
PROVIDERS: ATTEND Internal Medicine
DX: S39.013A Strain of muscle, fascia and tendon of pelvis, initial encounter (principal); R82.2 Biliuria; R10.31 Right lower quadrant pain; K57.30 Diverticulosis of large intestine without perforation or abscess without bleeding; X58.XXXA Exposure to other specified factors, initial encounter; Y93.89 Activity, other specified; Y92.89 Other specified places as the place of occurrence of the external cause; Y99.8 Other external cause status
CPT/HCPCS: 74177; Q9966; Q9967